=== PATIENT | female | born 1975 | race American Indian/Alaskan Native ===

== ENCOUNTER 2025-02-16 12:46 | Inpatient (IN) | payer MEDICARE, MEDICAID, SELFPAY ==
--- NOTE | ~2025-02-16 | CT_ITS ---
EXAMINATION: CT HEAD WITHOUT CONTRAST CLINICAL INFORMATION: Fall, seizure. COMPARISON: None available. TECHNIQUE: Contiguous axial imaging was performed from the skull base to vertex without intravenous administration of contrast. This CT examination was performed using dose optimization techniques as appropriate, variously including the following: *Automated exposure control *Adjustment of mA and/or kV according to patient size (this includes techniques or standardized protocols for targeted exams where dose is matched to indication/reason for exam; i.e. extremities or head) *Use of iterative reconstruction technique FINDINGS: There is no evidence of intracranial hemorrhage or extra-axial fluid collection. There is no mass effect, or edema. No CT evidence of acute territorial infarct. Ventricles, sulci, and cisterns are normal in size and configuration for patient age. No hydrocephalus. No midline shift. Negative hyperdense MCA sign. Negative insular ribbon sign. No white matter abnormalities. Normal pituitary. Globes and orbital contents image normally. No extracranial soft tissue abnormalities. The paranasal sinuses, mastoid air cells, and tympanic cavities are normally aerated. No suspicious bony abnormalities. There are no acute fractures evident. CT/CT head/brain wo IV con IMPRESSION: No acute intracranial abnormality. Electronically signed by: Vinny Kumar MD 02/16/2025 04:07 PM EDT RP
--- NOTE | ~2025-02-16 | CT_ITS ---
EXAMINATION: CT CERVICAL SPINE WITHOUT CONTRAST CLINICAL INFORMATION: Fall COMPARISON: None available. TECHNIQUE: Axial imaging was performed from the base of the skull through T2 without IV contrast. Coronal and sagittal reformatted images were generated from the original axial data set. ALARA: The examination used one or more of the following radiation dose reduction techniques: Automated exposure control, iterative reconstruction, and/or adjustment of mA and/or KV. DLP: 671 mGY*cm FINDINGS: Sclerosis and osteophytes are present at the atlantodental articulation. There is a faint somewhat amorphous calcific density inferior to anterior C1 and anterior to the dens that could represent hydroxyapatite deposition within the longus coli muscle. No fracture lines are evident. C2-C3: Unremarkable C3-C4: Mild disc space narrowing and degenerative changes with mild grade 1 retrolisthesis and facet arthropathy C4-C5: There is mild disc space narrowing and grade 1 retrolisthesis of appears chronic. There is sclerosis and osteophytes posteriorly. There is moderate facet arthropathy on the right. C5-C6: There is mild disc space narrowing and degenerative endplate changes with moderate to severe facet arthropathy on the left C6-7: There is moderate severe disc space narrowing with degenerative endplate changes and endplate osteophytes. There is mild to moderate facet arthropathy, greater on the left C7-T1: There is subtle anterolisthesis and mild disc space narrowing. There is mild facet arthropathy. There is a heterogeneous nodule in the left thyroid gland measuring 1.9 x 2.9 cm (AP by CC). CT/CT cervical spine wo IV con IMPRESSION: No acute abnormality. Multilevel degenerative disc disease and facet arthropathy Possible calcific tendinitis involves longus coli. 1.9 x 2.9 cm left thyroid gland nodule. Follow-up nonemergent thyroid ultrasound. Electronically signed by: Kendall Gonzales MD 02/16/2025 04:13 PM EDT
--- NOTE | ~2025-02-16 | FL_ITS ---
EXAMINATION: Modified Barium Swallow CLINICAL INFORMATION: Dysphagia. COMPARISON: None. TECHNIQUE: Modified barium swallow was performed under lateral fluoroscopy with patient in standing position. Barium mixed with solids and liquids of different consistencies was administered by the speech pathologist. Examination was recorded in the fluoroscopy suite. FINDINGS: Patient was given numerous consistencies. No laryngeal penetration, glottic or subglottic aspiration was observed. FLUOROSCOPY TIME: 48 seconds Number of Spot Images: N/A DOSE AREA PRODUCT: 557.9 uGy-m2 (microgray-meter squared) FL/FL Modified Barium Swallow IMPRESSION: No laryngeal penetration or subglottic aspiration was observed. Refer to the full speech therapy report to follow for further detail. Electronically signed by: Vinny Kumar MD 02/22/2025 02:47 PM EDT
[2025-02-16 13:05] VITALS: BP 118/82; BP 123/80; PULSE 109; PULSE 123; RESP 18; TEMP 36.7; O2SAT 95; O2SAT 96; BMI 26.5
[2025-02-16 13:12] VITALS: BP 123/80; PULSE 109; RESP 18; TEMP 36.7; O2SAT 96
--- OUTSIDE RECORDS SUMMARY | 2025-02-16 14:22 | XMS_ITS | Encounter Summary ---
Author Organization [email or web address] Address [address] [place] [address] Care Team Providers Care Building Construction Supervisor Name Role Phone Reji Frausto NP, Erica Primary Care Provider [phone] Encounter Details Date Type Department Care Team (Late st Contact Info) Description 02/04/2025 Lab Requisition [facility] - Main Lab [address] [place] [address] Mariposa Mendoza NP [address] [place] [address] Other pen[facility]ent[facility] (current) drug therapy Social History Tobacco Use Types Packs/Day Years Used Date Smoking Tobacco: Never Assessed Comments Unknown Sex and Gender Information Value Date Recorded Sex Assigned at Not on file Legal Sex Female 9:18 AM EST Gender Identity Not on file Sexual Orientation Not on file documented as of this encounter Plan of Treatment Not on file documented as of this encounter Procedures Procedure Name Priority Date/Time Associated Diagnosis Comments LIPID PANEL WITH REFLEX TO DIRECT LDL Routine 02/04/2025 7:00 AM EDT Other extermination supervisor (current) drug therapy HEMOGLOBIN A1C Routine 02/04/2025 7:00 AM EDT Other penit[facility] (current) drug therapy GLUCOSE, RANDOM Routine 02/04/2025 7:00 AM EDT Other penitentiary (current) drug therapy documented in this encounter Results * (ABNORMAL) Lipid panel with reflex to direct LDL (02/04/2025 7:00 AM EDT) Cholesterol 182 0 - 200 mg/dL LAB CHEMISTRY METHOD 02/04/2025 12:55 PM EDT [facility] Triglycerides 80 0 - 150 mg/dL LAB CHEMISTRY METHOD 02/04/2025 12:[address] [facility] HDL 44 >=40 mg/dL LAB CHEMISTRY METHOD 02/04/2025 12:[address] [facility] LDL Calculated 122(H) 0 - 100 mg/dL LAB CHEMISTRY METHOD 02/04/2025 12:[address] [facility] VLDL Cholesterol Francisco J 16 mg/dL LAB CHEMISTRY METHOD 02/04/2025 12:[address] [facility] Non HDL Chol. (LDL+VLDL) 138 <145 mg/dL LAB CHEMISTRY METHOD 02/04/2025 12:[address] [facility] Chol/HDL Ratio 4.1 0.0 - 4.4 LAB CHEMISTRY METHOD 02/04/2025 12:[address] [facility] Blood Venous blood specimen / Unknown Venipuncture / Unknown 02/04/2025 7:00 AM EDT 02/04/2025 12:04 PM EDT us Mariposa Frausto NP LAB BLOOD ORDERABLES Final Re sult Performing Organization Address [facility]/ZIP Co de Phone Number [facility] [address] [place] [address], * Glucose, random (02/04/2025 7:00 AM EDT) Glucose 73 70 - 100 mg/dL LAB CHEMISTRY METHOD 02/04/2025 12:[address] [facility] Blood Venous blood specimen / Unknown Venipuncture / Unknown 02/04/2025 7:00 AM EDT 02/04/2025 12:04 PM EDT us Mariposa Staple V, BICYCLE COURIER LAB BLOOD ORDERABLES Final Re sult Performing Organization Address City/[facility]/ZIP Co de Phone Number [facility] [address] [place] [address], [place] [phone] * Hemoglobin A1c (02/04/2025 7:00 AM EDT) Hemoglobin A1C 5.5 <6.5 % LAB CHEMISTRY METHOD 02/06/2025 12:[address] [facility] Mean Bld Glu Estim. 111 mg/dL LAB CHEMISTRY METHOD 02/06/2025 12:[address] [facility] Blood Venous blood specimen / Unknown Venipuncture / Unknown 02/04/2025 7:00 AM EDT 02/04/2025 12:04 PM EDT Mariposa Frausto NP LAB BLOOD ORDERABLES Final Re sult [facility] [address] [place] [address], documented in this encounter Visit Diagnoses Diagnosis Other penitent[facility] (current) drug therapy documented in this encounter Care Teams Building Construction Supervisor Relationship Specialty Start Date End Date Mariposa Mendoza NP [address] [place] [phone] PCP - General Psychiatry 02/04/25 documented as of this encounter
--- OUTSIDE RECORDS SUMMARY | 2025-02-16 14:22 | XMS_ITS | Data Portability ---
Author Organization [place] - [employer] [facility], [facility] Mate First Address [address] [place] [address] Care Team Providers Care Underground Heavy Equipment Operator Name Role Phone BETTY KAMARA Credit Card Analyst [phone] [facility] DERMATOLOGY Virtualization Engineer BRENDA ALDRICH Primary Care Provider MEMO Vargas Primary Care Provider Assessment Encounter Date Assessment Date Assessment LastModified by Organization Details LastModified Time 03/20/2021 03/20/2021 Consent given for telehealth visit [email or web address] Not available 03/20/2021 13:51:17 04/03/2021 04/03/2021 Consent given for telehealth visit Not available 04/03/2021 15:50:22 06/13/2021 06/13/2021 Consent given for telehealth visit. 30 min spent in total care of patient on day of visit including 5 minute pre-visit review of chart; 25 minutes counseling with patient re: her condition and complaints [email or web address] Not available 06/13/2021 13:15:56 03/19/2023 03/19/2023 Consent given for telehealth visit [email or web address] Not available 03/19/2023 13:55:23 Plan of Treatment Reminders Order Date Submit Date Provider Last Modified By Organization Details Last Modified Time Details Appointments None recorded. Lab None recorded. Referral gastroente rologist referral 2020 021 Not available 18:44:[address] referral 2020 021 [email or web address] Fabi Dunaway MD, [address], [place], [address], 2 12:28:35 Procedures None recorded. Surgeries None recorded. Imaging None recorded. Medication Orders nystatin 100,000 unit/mL oral suspension 2022 [address], [address] [facility], [place], [address], 3 13:55:15 nystatin 100,000 unit/mL oral suspension 2020 021 JANETH Not available 15:29:49 cromolyn 100 mg/5 mL oral concentrat e 2020 021 JANETH Not available 15:38:30 cyclobenza georgina 5 mg tablet 2020 021 [email or web address] Not available 18:29:27 trazodone 100 mg tablet 2020 021 JANETH Not available 13:50:09 topiramate 25 mg tablet 2020 021 [email or web address] Not available 12:35:11 Patient TargetsNo targets recorded. Patient InstructionsNo instructions recorded. Reason for Referral Large Animal Veterinarian Referral for Epigastric pain Referring Physician: Brenda Aldrich [facility], Encounter Date: 04/03/2021 Psychiatrist Referral for An xiety disorder Referring Physician: Brenda Aldrich [facility] Medicine, Encounter Date: 04/03/2021 Results Created Date Observation Date Name Description Value Unit Range Abnormal Flag Note LastModifiedBy Organization Detail LastModifiedTime 04/02/2003/27/2021 CT, angio gram, chest + abdom en + pelvi s, w/ contr ast No observ ation record ed. BARCODE Not Available 2020 16:06:36 04/02/20 21 03/27/2021 CT, cervi michel spine , w/ contr ast No observ ation record ed. [email or web address] Not Available 2020 09:58:23 04/02/20 21 03/27/2021 CT, thora cic spine , w/o contr ast No observ ation record ed. Not Available 2020 09:58:24 04/02/20 21 03/27/2021 CT, brain , w/o contr ast No observ ation record ed. [email or web address] Not Available 2020 09:58:24 04/02/20 21 03/27/2021 CT, lumba r spine , w/o contr ast No observ ation record ed. Not Available 2020 09:58:24 08/31/19 22 08/12/2021 XR, abdom en, 2 view No observ ation record ed. BARCODE Not Available 2021 11:30:24 09/19/19 22 09/10/2021 upper endos copy proce dure (EGD) (PROC ) No observ ation record ed. [email or web address] Not Available 2021 12:18:38 Result Notes None recorded. 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 [address], [address], [facility] [employer] 7 14:04:24 Mixed anxiety and depressiv e disorder 684121097 Active [address], [address], [facility] [employer] [facility] [employer] 7 14:06:15 Psoriasis 2554796 Active [address], [address], [facility] 7 07:10:02 Asthma 071406904 Active 2016 ANA M Jeter [address] [place] [address], [address], [facility] [employer] [facility] 7 07:10:40 Allergic rhinitis 44336227 Active 2016 ANA M Jeter [address] [place] [address], [address], [facility] 7 07:11:00 Angioedem a 40252442 Active [address], [address], [facility] [employer] [facility] 7 07:11:07 Eczema 31415407 Active 2016 ANA M Jeter [address] [place] [address], [address], [facility] 7 07:11:16 Urticaria 051806249 Active 2016 ANA M Jeter [address] [place] [address], [address], [facility] [employer] [facility] [employer] 7 07:11:24 Dysmenorr hea 868304793 Active 2016 ANA M Jeter [address] [place] [address], [address], [facility] [employer] [facility] 7 07:16:44 Rosacea 176423468 Active 2016 ANA M Jeter [address] [place] [address], [address], [facility] [employer] [facility] 7 07:19:06 Chronic hyponatre pop 32641546 Active [address], [address], [facility] [employer] [facility] 7 07:48:25 Peptic ulcer 20828201 Active 2016 ANA M Jeter [address] [place] [address], [address], [facility] [employer] 7 08:21:09 Bipolar disorder 99493232 Active 2016 ANA M Jeter [address] [place] [address], [address], [facility] - [employer] [facility] 7 08:21:42 Dry eyes 734007319 Active 2016 Deja Brian, ANA M [address] [place] [address], [address], [facility] - [facility] 7 12:07:44 Dermatogr aphic urticaria 6488062 Active 2016 ANA M Jeter [address] [place] [address], [address], [facility] - [employer] [facility] 7 12:12:08 Nausea 653366619 Active 2017 Clint johnson, [place] - [facility] 8 15:25:20 Gastroeso phageal reflux disease 125602084 Active 2017 Clint johnson, [place] - [facility] 8 15:27:50 Postconcu ssion syndrome 86832643 Active 2017 Brenda Aldrich MD [address] [place] [address], [address], [facility] [employer] [facility] 8 11:23:23 Chronic neck pain 512037615542 7 Active 2017 Brenda Aldrich MD [address] [place] [address], [address], [facility] 8 08:50:19 Loss of hair 802204065 Active 2017 Brenda Aldrich MD [address] [place] [address], [address], [facility] 8 10:08:48 Dysphagia 03151399 Active 2017 Brenda Aldrich MD [address] [place] [address], [address], [facility] 8 10:09:52 Pain of left wrist 830952695957 102 Active 2017 Brenda Aldrich MD [address] [place] [address], [address], [facility] 8 15:29:53 Recurrent falls 545265746 Active 2017 Brenda Aldrich MD [address] [place] [address], [address], [facility] [employer] 8 15:31:15 Sensitive to smells 57881969 Active 2018 Brenda Aldrich MD [address] [place] [address], [address], [facility] [employer] 9 15:06:42 Environme ntal allergy 519311909 Active 2018 Jessica Jesika [address] [place] [address], [address], [facility] [employer] 9 10:53:19 Chronic insomnia 472047575 Active 2020 Brenda Aldrich MD [address] [place] [address], [address], [facility] [employer] 1 13:48:53 Problem Notes None recorded. Procedures Surgical History Date Name Laterality Status Provider Name and Address Organization Details Recorded Time 10/28/19 19 Date of Last Pap Smear completed Jessica Canchola [address] [place] [address], [address], [facility] [employer] 11/03/2018 14:09:23 11/01/19 18 Suture/Staple removal completed ANA M Jeter [address] [place] [address], [address], [facility] [employer] 10/31/2017 15:14:19 01/10/20 17 EGD completed ANA M Jeter [address] [place] [address], [address], [facility] [employer] 05/02/2017 08:12:51 10/24/19 16 EGD completed ANA M Jeter [address] [place] [address], [address], [facility] [employer] 05/02/2017 08:13:37 09/06/19 16 EGD completed ANA M Jeter [address] [place] [address], [address], [facility] 05/02/2017 08:11:15 04/25/20 11 EGD completed Deja Brian, [address], [address], [facility] 05/02/2017 08:14:12 Septoplasty completed Deja Brian , [address], [address], [facility] 05/02/2017 07:12:30 Orthopedic Surgery completed Deja Brian, [address], [address], [facility] 05/02/2017 08:12:15 Imaging Results None recorded. Procedure Notes None recorded. Medical Equipment None Reported. Allergies Allergen ID Allergen Name Allergen Category Reaction Reaction Severity Criticality Documentation Date Start Date Code Code System Note Provider Name and Address Organization Details Recorded Time 78206 azithromy papa medicatio n Not available Not available Not available 04/10/2017 03470 Rx[facility] 13:31:55 54058 Product containin g penicilli n (product) medicatio n Not available Not available Not available 04/10/2017 93625 8001 SNOMED Clint Jean Baptiste [facility] 13:32:15 78602 ibuprofen medicatio n Not available Not available Not available 04/10/2017 5640 RxNorm Clint Jean Baptiste [facility] 7 13:32:27 67394 Cymbalta medicatio n Not available Not available Not available 04/10/2017 62709 4 RxNorm [facility] 7 13:32:57 68476 pioglitaz one medicatio n Not available Not available Not available 04/10/2017 73075 RxNorm Clintrubens Jean Baptiste [facility] 7 13:33:08 11602 prednison e medicatio n Not available Not available Not available 04/10/2017 8640 RxNorm patie nt state s that it was a fille r in the medic ation that she was aller gic to. Has had IV and was fine. Sara Cm LPN [address] [facility], [place], [address], [facility] [employer] [facility] 9 14:47:42 14755 Substance with sulfonami de structure and antibacte rial mechanism of action (substanc e) medicatio n Not available Not available Not available 05/02/2017 38088 8003 SNOMED Deja Brian, ANA M [address] [place], [address], [facility] [employer] [facility] 7 07:12:08 84004 Avelox medicatio n rash Not available Not available 07/29/2017 64574 6 RxNorm ANA M Jeter [address] [place], [address], [facility] [employer] [facility] 7 10:49:38 74228 cefadroxi l medicatio n rash severe Not available 01/20/2018 2177 RxNorm Liz Da Silva LPN [address] [facility], [place], [address], [facility] [employer] [facility] 8 17:49:24 20540 Lamictal medicatio n hives severe Not available 01/20/2018 00383 2 RxNorm Liz Da Silva LPN [address] [place], [address], [facility] [employer] [facility] 8 17:50:48 48905 Vimpat medicatio n seizure mild Not available 04/02/2018 25405 9 RxNorm Only to the 100 mg with the tremayne Canchola [address] [facility], [place], [address], [facility] [employer] [facility] 1 12:00:03 Medications Name Sig Start Date Stop Date Status Note LastModified by Organization Details LastModified Time ondansetr on hcl 4 mg tabs 09/04 completed Not Available Not Available Not Available lamotrigi ne 25 mg tabs 03/31 completed Not Available Not Available Not Available gabapenti n 400 mg caps 01/13 completed Not Available Not Available Not Available hydroxyzi ne hcl 50 mg tabs Take 1 tablet by mouth 3 times a day 02/09 completed PRN Not Available Not Available Not Available hydrocort isone 1 % crea PRN 02/21 completed Not Available Not Available Not Available clindamyc in hcl 300 mg caps Take 1 every 6 or 8 hours 09/07 completed Not Available Not Available Not Available triamcino lone acetonide 0.1 % crea 02/21 completed Not Available Not Available Not Available omeprazol e 20 mg cpdr 09/04 completed Not Available Not Available Not Available hydrocort isone 2.5 % oint 09/04 completed Not Available Not Available Not Available ondansetr on hcl 8 mg tabs Take 1 tablet by mouth 3 times a day as needed for nausea. active Not Available Not Available No t Available olanzapin e 10 mg tabs 07/13 completed Not Available Not Available Not Available cyclobenz aprine hcl 5 mg tabs 02/03 completed Not Available Not Available Not Available olanzapin e 2.5 mg tabs 07/13 completed Not Available Not Available Not Available doxepin hcl 25 mg caps 09/04 completed Not Available Not Available Not Available hydroxych loroquine sulfate 200 mg tabs Take 1 tablet by mouth every day. 02/03 completed Not Available Not Available Not Available baclofen 5 mg tabs 02/09 completed Not Available Not Available Not Available flovent hfa 44 mcg/act aero 1 puff inhalati on 2 times a day. 02/21 completed Not Available Not Available Not Available vimpat 50 mg tabs 01/07 completed Not Available Not Available Not Available advair diskus 250-50 mcg/dose aepb 02/09 completed Not Available Not Available Not Available ranitidin e hydrochlo ride 150 mg caps 02/21 completed Not Available Not Available Not Available monteluka st sodium 10 mg tabs Take 1 tablet by mouth once a day at bedtime. 03/31 completed Not Available Not Available Not Available suprep bowel prep kit 17.5-3.13 -1.6 gm/180ml soln 09/02 completed Not Available Not Available Not Available diazepam 5 mg tabs 09/04 completed Not Available Not Available Not Available clotrimaz ole 1 % crea 07/08 completed Not Available Not Available Not Available rizatript an benzoate 10 mg tabs 07/08 completed Not Available Not Available Not Available gabapenti n 300 mg caps 1 capsule by mouth 3 times a day. 01/13 completed Not Available Not Available Not Available risperido ne 1 mg tabs 01/12 completed Not Available Not Available Not Available cymbalta 30 mg cpep 09/04 completed Not Available Not Available Not Available clobetaso l propionat e 0.05 % oint 1 applicat ion topical 2 times a day as needed for rash. active Not Available Not Available No t Available minocycli ne hcl 100 mg caps 03/31 completed Not Available Not Available Not Available ranitidin e hcl 150 mg caps 1 cap QID 07/08 completed Not Available Not Available Not Available topiramat e 25 mg tabs 07/13 completed Not Available Not Available Not Available triamcino lone acetonide 0.5 % crea PRN active Not Available Not Available Not Available sucralfat e 1 gm tabs 09/04 completed Not Available Not Available Not Available prochlorp erazine maleate 5 mg tabs 07/13 completed Not Available Not Available Not Available xolair 150 mg solr 300mg twice a week active Twice every 2 weeks Not Available Not Available Not Available dexametha sone 1 mg tabs 09/04 completed Not Available Not Available Not Available trazodone hcl 150 mg tabs 09/04 completed Not Available Not Available Not Available mirtazapi ne 7.5 mg tabs 07/13 completed Not Available Not Available Not Available levocetir izine dihydroch loride 5 mg tabs 07/13 completed Not Available Not Available Not Available moxifloxa papa hcl 400 mg tabs 09/02 completed Not Available Not Available Not Available metronida zole vaginal 0.75 % gel 07/13 completed Not Available Not Available Not Available dexametha sone 2 mg tabs 03/07 completed Not Available Not Available Not Available baclofen 10 mg tabs 01/07 completed Not Available Not Available Not Available zolpidem tartrate 10 mg tabs 07/13 completed Not Available Not Available Not Available ranitidin e hcl 150 mg tabs 09/04 completed Not Available Not Available Not Available mirtazapi ne 15 mg tabs 07/13 completed Not Available Not Available Not Available cyclobenz aprine hcl 10 mg tabs 02/03 completed Not Available Not Available Not Available epinephri ne 0.3 mg/0.3ml soaj 07/01 completed Not Available Not Available Not Available xolair 150 mg/ml sosy 07/08 completed Not Available Not Available Not Available furosemid e 20 mg tabs 09/04 completed Not Available Not Available Not Available cefadroxi l 500 mg/5ml susr 02/03 completed Not Available Not Available Not Available omeprazol e 40 mg cpdr 07/13 completed Not Available Not Available Not Available ciproflox acin hcl 500 mg tabs 09/02 completed Not Available Not Available Not Available ventolin hfa 108 (90 base) mcg/actae rs PRN active Not Available Not Available Not Available oxycodone /acetamin ophen 5-325 mg tabs 09/03 completed Not Available Not Available Not Available clotrimaz ole/betam ethasone dipropion ate 1-0.05 % crea 09/04 completed Not Available Not Available Not Available neomycin/ polymyxin /hydrocor tisone 3.5-82690 -1 susp 07/08 completed Not Available Not Available Not Available doxepin hcl 10 mg caps 07/08 completed Not Available Not Available Not Available epipen 2-daniel 0.3 mg/0.3ml soaj 02/09 completed Not Available Not Available Not Available ibuprofen 800 mg tabs 03/31 completed Not Available Not Available Not Available clonazepa m 1 mg tabs PRN 02/09 completed Not Available Not Available Not Available acetamino phen/code ine 300-30 mg tabs 09/03 completed Not Available Not Available Not Available lorazepam 0.5 mg tabs 09/02 completed Not Available Not Available Not Available diazepam 2 mg tabs PRN- pt states she doesn't use that often. 02/09 completed Not Available Not Available Not Available famotidin e 20 mg tabs 07/13 completed Not Available Not Available Not Available naproxen 500 mg tabs 09/02 completed Not Available Not Available Not Available trazodone hcl 100 mg tabs Take 1 tablet by mouth once a day at bedtime as needed for insomnia . 01/13 completed Not Available Not Available Not Available doxycycli ne hyclate 100 mg caps 02/21 completed Not Available Not Available Not Available hydroxyzi ne hcl 25 mg tabs 07/13 completed Not Available Not Available Not Available vimpat 100 mg tabs 06/02 completed Not Available Not Available Not Available lorazepam 1 mg tabs 01/13 completed Not Available Not Available Not Available ipratropi um bromide 0.03 % soln 03/31 completed Not Available Not Available Not Available clonazepa m 0.5 mg tabs Take 1 tablet by mouth 2 times a day at bedtime. 03/31 completed Not Available Not Available Not Available diazepam 10 mg tabs 07/08 completed Not Available Not Available Not Available trazodone hcl 50 mg tabs 09/04 completed Not Available Not Available Not Available ondansetr on odt 8 mg tbdp 03/31 completed Not Available Not Available Not Available cromolyn sodium 100 mg/5ml conc PRN active Not Available Not Available Not Available doxycycli ne hyclate 20 mg tabs 09/04 completed Not Available Not Available Not Available zolpidem tartrate 5 mg tabs 07/13 completed Not Available Not Available Not Available paroxetin e hcl 20 mg tabs Take 1 tablet by mouth every day. 02/03 completed no longer taking/p t Not Available Not Available Not Available fluticaso ne propionat e 50 mcg/act susp 2 inhalati ons per nostril 2 times a day. active Not Available Not Available No t Available proair hfa 108 (90 base) mcg/act aers PRN 02/21 completed Not Available Not Available Not Available mupirocin 2 % oint 03/31 completed Not Available Not Available Not Available amitiza 24 mcg caps 09/04 completed Not Available Not Available Not Available azelastin e hydrochlo ride 0.1 % soln 09/04 completed Not Available Not Available Not Available buspirone 5 mg tablet Take 2 tablets twice a day by oral route. active Not Available Not Available No t Available albuterol sulfate 0.63 mg/3 mL solution for nebulizat ion Inhale 3 mL every 6 hours by inhalati on route as needed. 2018 active Not Available Not Available Not Avai lable cromolyn 100 mg/5 mL oral concentra te Take 5 mL 3 times a day by oral route. 2020 active Not Available Not Available Not Avai lable nystatin 100,000 unit/mL oral suspensio n Take 5 mL 4 times a day by oral route as directed for 7 days. active Not Available Not Available No t Available acetamino phen 325 mg tablet Take 2 tablets every 6 hours by oral route as needed. 03/19 completed Not Available Not Available Not Available doxycycli ne hyclate 100 mg capsule Take 1 capsule twice a day by oral route for 7 days. 02/21 completed Not Available Not Available Not Available clindamyc in HCl 300 mg capsule Take 1 capsule 3 times a day by oral route for 10 days. 02/03 completed Not Available Not Available Not Available diphenhyd ramine 50 mg capsule Take 1 capsule every 6 hours by oral route as needed. 02/03 completed Not Available Not Available Not Available trazodone 50 mg tablet Take 1 tablet every day by oral route. 03/07 completed Not Available Not Available Not Available fluconazo le 150 mg tablet TAKE ONE TABLET ON DAY ONE AND SECOND TABLET THREE DAYS AFTER TABLET ONE active Not Available Not Available No t Available senna 8.6 mg tablet Take 2 tablets every day by oral route. 2020 active Not Available Not Available Not Avai lable prochlorp erazine maleate 5 mg tablet 07/13 completed Not Available Not Available Not Available ondansetr on HCl 8 mg tablet Take 1 tablet(s ) every 8 hours by oral route as needed. 03/31 completed Not Available Not Available Not Available Avelox 400 mg tablet Take 1 tablet every day by oral route for 7 days. 09/02 completed Not Available Not Available Not Available rizatript an 10 mg tablet PRN 07/13 completed Not Available Not Available Not Available clonazepa m 1 mg tablet 02/09 completed Not Available Not Available Not Available cromolyn 20 mg/2 mL solution for nebulizat ion INHALE 2 MILLILIT ERS (20 MG) BY NEBULIZA TION ROUTE 4 TIMES PER DAY PRN 03/31 completed Not Available Not Available Not Available bacitraci n 500 unit/gram topical ointment Apply 2 applicat ions twice a day by topical route as directed . 02/03 completed Not Available Not Available Not Available olanzapin e 10 mg tablet 07/13 completed Not Available Not Available Not Available topiramat e 25 mg tablet TAKE 2 TABLETS BY MOUTH TWICE DAILY DIRECTED active Not Available Not Available No t Available hydroxyzi ne HCl 50 mg tablet 07/08 completed Not Available Not Available Not Available doxepin 10 mg capsule 07/13 completed Not Available Not Available Not Available omeprazol e 40 mg capsule,d elayed release TAKE ONE CAPSULE BY MOUTH EVERY DAY active Not Available Not Available No t Available triamcino lone acetonide 0.1 % topical cream 02/21 completed Not Available Not Available Not Available risperido ne 2 mg tablet 01/12 completed Not Available Not Available Not Available Metrogel Vaginal 0.75 % (37.5 mg/5 gram) Insert 1 applicat orful every day by vaginal route at bedtime for 5 days. 11/03 completed Not Available Not Available Not Available lorazepam 0.5 mg tablet active Not Available Not Available Not Available Klonopin 0.5 mg tablet 2 tabs bid. 03/31 completed [facility]. Not Available Not Available Not Available trazodone 100 mg tablet TAKE 1 TABLET BY MOUTH AT BEDTIME NEEDED active Not Available Not Available No t Available diazepam 2 mg tablet 07/08 completed Not Available Not Available Not Available baclofen 10 mg tablet TAKE 1/2 TABLET BY MOUTH THREE TIMES DAILY 03/07 completed Not Available Not Available Not Available hydrocort isone 1 % topical cream 02/21 completed Not Available Not Available Not Available dexametha sone 2 mg tablet PRN active Not Available Not Available Not Available mirtazapi ne 30 mg tablet TAKE 1 TABLET BY MOUTH AT BEDTIME active Not Available Not Available No t Available Advair Diskus 250 mcg-50 mcg/dose powder for inhalatio n PRN active Not Available Not Available Not Available docusate sodium 100 mg capsule Take 1 capsule twice a day by oral route. active Not Available Not Available No t Available hydroxyzi ne HCl 25 mg tablet one tid for itching as needed 02/03 completed Not Available Not Available Not Available ranitidin e 150 mg capsule Once daily 03/07 completed Not Available Not Available Not Available zolpidem 5 mg tablet TAKE 1 TABLET BY MOUTH AT BEDTIME NEEDED 2021 active Not Available Not Available Not Avai lable albuterol 90 mcg/actua tion aerosol inhaler Inhale 2 puffs every 4 hours by inhalati on route as needed. active Not Available Not Available No t Available diazepam 10 mg tablet TAKE 2 TABLETS BY MOUTH EVERY EVENING NEEDED active Not Available Not Available No t Available hydrocort isone 0.5 % topical ointment APPLY A THIN LAYER TO THE AFFECTED AREA(S) BY TOPICAL ROUTE 2 TIMES PER DAY 02/03 completed Not Available Not Available Not Available zolpidem 10 mg tablet Once daily- prn 02/09 completed Not Available Not Available Not Available doxycycli ne hyclate 20 mg tablet Take 1 tablet twice a day by oral route. 01/13 completed no longer taking/p t Not Available Not Available Not Available fluticaso ne propionat e 50 mcg/actua tion nasal spray,celia penon 02/21 completed Not Available Not Available Not Available clotrimaz ole 1 % topical cream APPLY TO THE AFFECTED AND SURROUND ING AREAS OF SKIN BY TOPICAL ROUTE 2 TIMES PER DAY IN THE MORNING AND EVENING x 10 days 2018 active Not Available Not Available Not Avai lable risperido ne 1 mg tablet Once daily 01/12 completed Not Available Not Available Not Available doxycycli ne hyclate 100 mg tablet Take 1 tablet twice a day by oral route for 10 days. 09/01 completed Not Available Not Available Not Available diazepam 5 mg tablet TAKE 1 TABLET BY MOUTH AT BEDTIME FOR 7 DAYS NEEDED active Not Available Not Available No t Available olanzapin e 5 mg disintegr ating tablet 02/09 completed Not Available Not Available Not Available neomycin- polymyxin -hydrocor t 3.5 mg-10,000 unit/mL-1 % ear drops,celia p INSTILL 4 DROPS INTO AFFECTED EAR(S) BY OTIC ROUTE 3 TIMES PER DAY 09/01 completed Not Available Not Available Not Available escitalop yayo 10 mg tablet 02/09 completed Not Available Not Available Not Available cyclobenz aprine 5 mg tablet TAKE 1 TABLET BY MOUTH TWICE DAILY active Not Available Not Available No t Available clonazepa m 0.5 mg disintegr ating tablet Place 1 tablet twice a day by translin gual route. 02/21 completed Not Available Not Available Not Available neomycin- bacitraci n-polymyx in 3.5 mg-400 unit-5,00 0 unit/g top packet 1 Applicat ion topical 3 times a day as needed for allergy as needed. active Not Available Not Available No t Available mirtazapi ne 7.5 mg tablet 02/09 completed Not Available Not Available Not Available EpiPen 09/04 completed Not Available Not Available Not Available Acetamino phen-Code ine #3 Take 2 tablets by mouth every 4 hours as needed for pain. 10/24 completed no longer taking/p t Not Available Not Available Not Available Acidophil us 03/19 completed Not Available Not Available Not Available sodium chloride 1,000 mg soluble tablet Take 2 tablets by mouth every day. 02/03 completed Not Available Not Available Not Available ProAir HFA 90 mcg/actua tion aerosol inhaler active Not Available Not Available Not Available levocetir izine 5 mg tablet PRN 02/21 completed Not Available Not Available Not Available Vimpat 50 mg tablet Take 1 tablet 4 times a day by oral route. 07/13 completed Not Available Not Available Not Available Edna Allergy tid per dermatol ogist 03/31 completed Not Available Not Available Not Available EpiPen 2-Daniel 0.3 mg/0.3 mL injection , auto-inje ctor INJECT 1 PEN IN THE MUSCLE ONE TIME DIRECTED active Not Available Not Available No t Available ProAir RespiClic k 2 puffs every 4 hours prn. 07/01 completed Not Available Not Available Not Available cholecalc iferol (vit D3) 1,000 unit-joseph min K2 (MK4) 100 mcg tablet Take 2 tablets every day by oral route. active Not Available Not Available No t Available baclofen 5 mg tablet 1 tablet 3 times a day as needed for pain active Not Available Not Available No t Available Xolair 150 mg/mL subcutane ous syringe 07/13 completed Not Available Not Available Not Available Vitals Date Recorded Body weight Provider Name an d Address Organization Details Last Updated DateTime 04/03/2021 47116.93 g Jessica Canchola [address] [facility], [place], [address], [place] - [employer] 04/03/2021 14:31:56 Social History Question Answer Notes LastModified by Organizat ion Details LastModified Time Tobacco Smoking Status Never Smoker Clint johnson, [place] - [employer] 04/10/2017 13:44:37 What Is Your Level Of Caffeine Consumption? Occasional Information not available 04/10/2017 How Much Tobacco Do You Chew? None Information not available 04/10/2017 Which Illicit Or Recreational Drugs Have You Used? No Information not available 04/10/2017 Are There Any Guns Present In Your Home? No Information not available 04/10/2017 Hard Of Hearing Or Deaf In One Or Both Ears? No Information not available 04/10/2017 Legally Blind In One Or Both Eyes? No Information no t available 04/10/2017 Foreign Travel Yes Informatio n not available 04/10/2017 Do You Have A Family History Of Mental Health Or Substance Abuse? No Information not available 04/10/2017 Language Jamaican Information no t available 09/17/2017 Country Of Origin [facility] Informa tion not available 09/17/2017 Marital Status Single Informatio n not available 04/10/2017 What Was The Date Of Your Most Recent Tobacco Screening? 01/12/2021 Information not available 01/12/2021 How Many Children Do You Have? 0 Information not available 09/17/2017 Obese No Information no t available 09/17/2017 Overweight No Information no t available 09/17/2017 Seat Belts Used Routinely Yes Information not available 04/10/2017 Are You Sexually Active? No Information not available 04/10/2017 Smoke Alarm In Home Yes Information not available 04/10/2017 Are You Passively Exposed To Smoke? No Information no t available 09/17/2017 General Stress Level High Information not available 04/10/2017 Do You Use Sunscreen Routinely? Yes Information not available 04/10/2017 Sex: Unknown Functional Status Question Answer Note LastModified by Organizat ion Details LastModified Time What is your level of alcohol consumption? 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 None Information not available 04/10/2017 Mental Status None recorded. Family History Relationship Description Onset Age of this Age Resolved Age Notes LastModified by Organization Details LastModified Time Father Parkinson's disease courtney ia kkorte Not available 05/02/2017 08:18:51 Notes:updated 09/17/17 SR Medical History Condition Response Asthma, COPD, Breathing or Lung Disorder Y Anxiety/Depression Y Gout N Cardiac History, Heart Murmur, CO N Eye or Vision Problems N Gynecologic problems N Hernia N Thyroid Problems Y GI Problems Y Developmental or Behavioral Disorders N Blood Pressure High or Low N Skin Problems Y Breast Problem N Food or Environmental Allergies N Diabetes N Bladder,Kidney Problems or Recurrent UTI 's Y Muscle, Joint, or Bone Problems Y Bleeding Disorder N Arthritis N Cancer (of any kind) N Defects or Inherited Diseases N Prostate issues, ED or Sexual Problem N Insomnia N Cholesterol High or Low N Chronic Pain N Stroke N Headache N Dizziness or Fainting N Seizures or Convulsions N Ear Nose & Throat (ENT) Problems N Neuropathy N Osteoporosis N Liver Disease or Hepatitis N Gynecological History Statement/Question Response Hx abnormal paps neg incontinence urine/ bowels N Y hx of breast problem neg Date of LMP 08/17/2018 genital prolapse N Hx any STI neg Date of Last Pap Smear 10/27/2018 Current Control Method None Age at Menarche 11 hx of urinary problem no hx of butter printer surgery no Obstetrics History GPAL:G 0 P 0 0 0 0 Immunizations Vaccine Type Date Status Note Provider Nam e and Address Organization Details Recorded Time COVID-19 vaccine, vector-nr, rS-ChAdOx1, PF, 0.5 mL 01/11/2021 completed Carlita johnson [place] - [facility] 01/12/2021 13:53:52 Past Encounters Encounter ID Performer Location Encounter Start Date Encounter Closed Date Diagnosis/Indication Diagnosis SNOMED-CT Code Diagnosis ICD10 Code Diagnosis Note [id number] Eva Sommers MD [facility] [address] [place] [address] 04/10/2017 13:18:15 04/10/2017 14:21:53 Mixed anxiety and depressive disorder 271800376 F41.8 She is off her anxiety meds. Needs to get back on those meds.I need to obtain the records and will also expedite social sciences professor/psy chiatry consult.Se ems like a lot of her symptoms are related to anxiety and she says she feels like that is part of the problem. Talked about some other measures that can help deal her deal with anxiety and including meditation . Her mother has been helpful to help her relax. Urticaria 014393439 L50. 9 She has been to the ED several times in the last week. She has missed her most recent dose of Xolair. She has a decadron dose pack.She needs an humanities division chair and a dermatolog ist.She will complete the decadron. Stay on hydroxyzin e and will continue with ranitidine .explained that the symptoms were not resolved immediatel y and she needs to just give the medication some time. Abdominal pain 50633543 R10.9 she has an apt with Dr. Austin tomorrow. [id number] Eva Sommers MD [facility] [address] [place] [address] 07/25/2017 07:58:32 07/25/2017 08:38:56 Acute maxillary sinusitis 59274966 J01.00 We discussed the risks of treating her with an antibiotic given her history of antibiotic allergy and mast cell disorder. She understand s and is aware of the risk. With reluctance we will treat with Avelox. She will follow up with her humanities division chair on Friday to inform them that she is taking this antibiotic . Mixed anxi ety and depressive disorder 906949639 F41.8 She is doing well seeing Krystyna Moreno and will continue with her. Allergic rhinitis 532582 04 J30.9 History of deviated septum and sinus infections . She would like to see a specialist . Will refer to ENT Eczema 95770856 L30.9 She has multiple skin issues. Will refer to dermatolog y. [id number] Eva Sommers MD [facility] [address] [place] [address] [place] [address] 09/02/2017 11:00:13 09/02/2017 11:58:02 Hyponatremia 16955261 E87.1 Chronic hyponatremia 503 13781 E87.1 She reports she has been hyponatrem ic for over 20 years. Na+ was 125 last week and could be contributi ng to unsteady feeling.Co ncern re cause. She report that no one has been able to find cause.To ED today - ? fluids. Spoke with ED nurse. [id number] Eva Sommers MD [address] [place] [address] 10/24/2017 07:31:33 10/24/2017 09:06:57 Vasovagal syncope 402335417 R55 likely vasovagal syncope. Ambulance called and she was transporte d to the hospital. Chronic hyponatremia 503 16655 E87.1 SHe is worried about her sodium level and would like it checked. [id number] Eva Sommers MD [address] [address] 10/31/2017 14:31:55 11/06/2017 15:36:20 Facial laceration 148457270 S01.81XD laceration is well-heale d. I asked her to use a small amount of bacitracin or lotion to keep the area moist for the next couple of days. Near syncope 468143617 R 55 she already has an appointmen t set up with Dr. Russo for November 12. We will complete PT 1 form so that she can get there.[place] has had issues with presyncope /syncope for years. I explained that we may not get to the bottom of some of her issues. Mixed anxi ety and depressive disorder 809058800 F41.8 she has an appointmen t with Krystyna Moreno next week. [id number] Brenda Aldrich MD [facility] [address] [facility] [place] [address] 01/13/2018 10:45:53 01/13/2018 11:23:35 Laceration of wrist 625681363 S61.512A There is mild erythema without pus around lesion. Trial topical abx as she would like to avoid systemic meds. If worsening redness, pain or d/c, RTC for oral abx. Nausea 404503219 R11.0 Pt requesting RF zofran. I called pharmacy to increase dispense to #30 Chronic hyponatremia 503 43661 E87.1 Per ED report, sodium increase from 123 to 130 with dietary measures (high salt). Con't. F/u kidney specialist s. 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 She is additional ly being worked up for neurodegen erative disorder. Cont with imaging ordered by Dr Cage and new medication . [id number] Kyler Turner MD [facility] [address] [place] [address] 02/03/2018 13:45:01 02/03/2018 14:56:47 Dysmenorrhea 478289912 N94.6 Irregular intermenstrual bleeding 26783739 N92.1 Premenstru al dysphoric disorder 625119 F32.81 Cyst of left ovary 58595 29626 0825163 N83.202 Endometrio sis of uterus 46074370 N80.0 Endometrio sis of pelvis 38440563 N80.3 Screening for malignant neoplasm of cervix 092126066 Z12.4 Venereal d isease screening 374622174 Z11.3 Vaginal discharge 129515 006 N89.8 [id number] Brenda Aldrich MD [facility] [address] [facility] [place] [address] 02/17/2018 09:44:22 02/17/2018 11:25:49 Dysphagia 47991534 R13.10 PE appears benign. Will order swallow study to rule out stricture. If neg, consider GI referral. Loss of hair 328130274 L 65.9 Frontal pattern. BW, and endo referral per pt request. Chronic hyponatremia 503 74275 E87.1 Update BW today I do not feel SSRIs would be a safe med choice for dysmenorrh ea given this issues. Request she see butter printer to review options. Amirah carias f/u kidney specialist s. Chronic neck pain 983210 2402 107 M54.2 Pain clinic appt in March. Will check tick panel given hx exposure [id number] Kyler Turner MD [facility] [address] [place] [address] 03/31/2018 09:52:25 03/31/2018 10:57:22 Menorrhagia 225323614 N92.0 Irregular intermenstrual bleeding 37210779 N92.1 Pain in pelvis 81467280 R10.2 Nausea and vomiting 1693 2000 R11.2 [id number] Colby Kimble MD [facility] [address] [place] [address] 04/02/2018 09:27:26 04/02/2018 11:42:46 Postconcussion syndrome 00921717 F07.81 last neurology consult reviewed, no record of any seizures. I've personally placed a call to Dr. Russo 's office and LMOM to please send consult and call back to coordinate care, also to call patient to clarify need for rx and update prescripti on as required. Not driving, which is significan t in ensuring safety. Bipolar disorder 5844840 4 F31.9 she is reportedly under the chronic care of Mira Moreno. [id number] Brenda Aldrich MD [facility] [address] [place] [address] 05/12/2018 14:14:19 05/12/2018 15:13:34 Chronic hyponatremia 58010837 E87.1 Update BW today Postconcus janessa syndrome 24929364 F07.81 with cognitive and other neurologic sequelae. Though pt reports now on Vimpat, I do not have seizure on problem list, and visit from 11/19 does not report seizure as active dx. Last I spoke with Dr Cage pt was being worked up for neurodegen erative disorder. I called office to request updated OV and to have them call Shayla about any upcoming studies (EEG, EMG) as she has not heard back but thought something had been ordered. Chronic neck pain 382841 6691 107 M54[address] Monaco on Friday as planned. [id number] Brenda Aldrich MD [facility] [address] [facility] [place] [address] 06/02/2018 12:49:51 06/02/2018 14:40:02 Chronic hyponatremia 23861387 E87.1 Last sodium level somewhat improved. Rec maintain moderate sodium intake and adequate hydration. 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 Ok to stop cromolyn for now. Con't as needed hydroxyzin e. Postconcus janessa syndrome 80865457 F07.81 with cognitive and other neurologic sequelae. I have called office to request updated OV and studies (EEG, EMG) however no recent reports are on file. Hopefully these will be forthcomin g. Con't Vimpat and f/u neurology. Near syncope 018282715 R 55 Cardiology appt this Friday. Their input will be appreciate d. ? POTS or other autonomic dysfunctio n. Avoid excessive stress, maintain adequate hydration and nutrition. F/u here 8 weeks. [id number] Brenda Aldrich MD [facility] [address] [facility] [place] [address] 06/19/2018 14:42:51 06/19/2018 16:16:39 Chronic hyponatremia 76775918 E87.1 Last sodium level somewhat improved. Rec maintain moderate sodium intake and adequate hydration. Await studies through [facility]. Postconcus janessa syndrome 06634844 F07.81 with cognitive and other neurologic sequelae.? seizure disorder, followed by Dr Cage. Symptomati c today (dizziness , not feeling well) without observed seizure. Con't Vimpat and f/u neurology. Pain of left wrist 15616 28832 39813 M25.532 + tenderness on exam c/w median nerve inflammati on. I feel that compressio n with MAURICE could be just as helpful as an immobilizi ng brace. Provided samples for pt. Ok to defer surgery if she is not comfortabl e with this treatment. Also helpful to wait for CV workup. Recurrent falls 73879109 2 R29.6 seizure vs syncope vs deconditio mary vs others. Heart monitor workup in place. Await Dr Da Silva's recommenda tions. [id number] Colby Kimble MD [facility] [address] [place] [address] 07/01/2018 14:39:47 07/01/2018 15:23:02 Pain of left wrist 1195629458 74074 M25.532 x-ray to r/o fx of carpal bones. Certainly she does not seem to have a fracture of larger bones of forearm nor of hand/finge rs. Assuming negative would advise activity as tolerated. [id number] Brenda Aldrich MD [facility] [address] [place] [address] 07/24/2018 14:44:38 07/24/2018 16:03:03 Otitis externa 9558041 H60.91 Mild, may be inflammati on more than infection but will prescribe combinatio n drops to be safe. x 1 week. Pain of left wrist 31383 21779 79406 M25.532 Rec she speak with Dr Chatterjee about hand therapy or PT to help reduce symptoms. Recurrent falls 49407989 2 R29.6 No cardiac cause determined . Probably multifacto rial. My hope is she will be able to meet with neurology for treatment plan in the next month or two. Con't Vimpat at current dose. [id number] Colby Kimble MD [facility] [address] [place] [address] 08/19/2018 10:12:50 08/19/2018 12:06:41 Acute maxillary sinusitis 39824777 J01.00 Symptoms began 2 weeks ago with primarily teeth pain and after a trial of antibiotic from dentist, acutely worsened 2 days ago with constituti onal symptoms and non-produc tive cough as well as pain in maxillary and ears, L side> R. On exam, pt was tender to palpation in maxillary sinus and mandibular monaco with tender lymphadeno duran. Moderate erythema bilaterall y in eyes and throat. Given the duration of symptoms (greater than 10 days), physical exam, and patient's hx of chronic sinusitis, likely diagnosis is acute bacterial sinusitis. Other diagnoses to consider are allergic rhinitis, retrophary ngeal abscess, and viral URI. Less likely allergic rhinitis due to acute pain in maxillary sinuses and jaw. Retopharyn geal abscess less likely due to lack of severe throat pain, breathing difficulty , and drooling. Less likely viral URI due to location of pain and duration of symptoms. Plan:- doxycyclin e 100mg for 10 days due to patient's allergies- ENT consult (already pending) [id number] Brenda Aldrich MD [facility] [address] [facility] [place] [address] 09/01/2018 12:57:23 09/01/2018 13:41:47 Postconcussion syndrome 78724152 F07.81 + frequent falls, dizziness with cognitive and other neurologic sequelae.? seizure disorder, followed by Dr Cage but I have not received notes in months, and pt is worsening. Symptomati c today without observed seizure. I would like Shayla to transfer care to [facility] neurology for more comprehens luzma care and testing. Chronic neck pain 905184 1155 107 M54.2 Worse post fall but full ROM. Follow up with Dr Monaco as planned. 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 ? other congenital issues that might explain Shayla's constellat ion of symptoms which include but are not limited to hyponatrem ia, thrombocyt osis, vertigo, poor circulatio n. Chronic hyponatremia 503 82820 E87.1 Unclear dx. Recheck levels today. [id number] Colby Kimble MD [facility] [address] [facility] [place] [address] 09/02/2018 13:42:37 09/02/2018 15:11:51 Vulvovaginitis 39250082 N76.0 empiric dx. trial topical antifungal , to arrange for f/u with optometry teacher for full butter printer exam. The patient verbalized a good understand ing of and agreement with plan. Dry eyes 754587342 H04.1 29 discussed use of artificial tears prn [id number] SUSI MAHONEY CNM [facility] [address] [facility] [place] [address] 09/07/2018 14:39:31 09/07/2018 15:25:35 Pruritus of vagina 73734574 L29.3 Pruritus ani 24721495 L2 9.3 Pruritus of vulva 960207 00 L29.2 [id number] Brenda Aldrich MD [facility] [address] [place] [address] 10/16/2018 15:22:58 10/16/2018 16:16:03 Sensitive to smells 64410040 R43.8 We discussed this diagnosis at length and ways for Shayla to learn to tolerate sensations and manage the accompanyi ng anxiety and panic. I recommend against further avoidance, as she seems to be in a vicious cycle of avoidance and increased sensitivit y. I sent her links to several websites discussing this condition and possible approach. Rec she try adding red pepper flakes to bland foods in order to work on the aspect of smell that arises from the soft palate, with the hope that the hot spice might dull other sensations and make them less noticeable /noxious. She is aware this is experiment al. She will d/c benadryl and flonase as she finds them irritating , and will decrease her dose of cromolyn. Pain of left wrist 50438 42941 99380 M25.532 Not a surgical candidate. Continues, bothersome . Will con't f/u Dr Monaco at pain clinc. Mixed anxi ety and depressive disorder 448608322 F41.8 Shayla is very distressed today. The majority of our visit was spent trying to focus on one issue at a time and avoid projecting too far into the future, to help reduce her feeling of panic and overwhelm. I recommend frequent f/u, such as q 6 weeks, to help Shayla build coping skills and avoid catastroph izing. F/u 4-6 weeks. [id number] Brenda Aldrich MD [facility] [address] [place] [address] 11/03/2018 13:53:01 11/03/2018 15:14:51 Mast cell disorder 275341767 D89.40 Request she return next visit with clear list of what meds she takes daily, as needed or never, to simplify med regimen and make sure our records are accurate. Will look into possible specialist . Chronic hyponatremia 503 76760 E87.1 Last levels wnl. Will recheck next visit. Anxiety disorder 2637307 06 F41.9 Depressed and hopeless as well, but is resistant to this as a primary symptom; feels in response to physical ailments. Declining evaluation or treatment at this time. Sensitive to smells 4584 6002 R43.8 Again discussed this diagnosis at length and ways for Shayla to learn to tolerate sensations and manage the accompanyi ng anxiety and panic. Rec she increase red pepper flakes, with the hope that the hot spice might dull other sensations and make them less noticeable /noxious. Explained that like many people who suffer from chronic conditions , she can try to separate the sensation itself from the reaction, which often results in worsening mood, frustratio n and hopelessne ss. Will update forms to include provision that she ride alone when possible to avoid triggers. Edema 259289663 R60.9 Not actually present objectivel y. Irregular intermenstrual bleeding 80608941 N92.1 Fibroids on u/s. Also ? perimenopa use. Consider repeating hormone testing 03/22 (one year from prior). [id number] Eva Sommers MD [facility] [address] [place] [address] 01/07/2019 09:25:26 01/07/2019 10:49:37 Abrasion of skin of ankle [id number] S90.511A (acute) 43 yo F with 3 superficia l abrasions on R that she states must have occurred during ambulance transport- had overdose & seizure activity for which she was admitted to [facility] 12/30-01/02. No indication of secondary infection at this time. Given eschar that is present, I recommende d gently debriding after shower/bat h or use of a warm compress to encourage healthy tissue to form. She states she is unable to use ant topical abx ointment r/t mast cell disorder. I asked that she double check with her humanities division chair about this & if able, to apply it to the area to keep it moist. Skin lesion [id number] L98 .9 (acute) Reassuranc e provided that black dot under L breast is a clogged pore & not a tick. [id number] Cindy Diggs MD [facility] [address] [place] [address] 07/13/2019 13:06:34 07/13/2019 13:46:10 Acute sinusitis [id number] J01.90 4 wk h/o sinusitis. Appropriat e to treat for bacterial etiology given length of symptoms. Will treat with doxycyclin e given patient allergies. Otherwise encouraged to continue supportive care with good oral fluid intake, rest, ibuprofen or acetaminop hen as needed for fever or pain. Follow up if symptoms worsen or fail to improve. Dizziness [id number] R42 Lightheade dness likely due to sinusitis, associated mild dehydratio n, checking labs to rule out systemic infection, true dehydratio n or electrolyt e abnormalit ies. Advised to increase fluid intake and monitor symptoms with treatment of sinusitis as above. [id number] Brenda Aldrich MD [facility] [address] [place] [address] 01/12/2021 13:51:41 01/12/2021 15:07:16 Loss of taste 38403675 R43.2 Shayla has complained about this, as well as aversion to eating, since I have known her. Unclear etiology. Reasonable to rule out COVID though unlikely given normal XR, BW, and single J&J vaccine. Suspected coronavirus infection [id number] Z03.818 r/o COVID-19 as requested by pt, she is aware to come to [facility] for test Anxiety 68280161 F41.9 Severe, worsening. I expressed that olanzapine likely has the best efficacy to side effect ratio, Shayla states she is concerned about s/e and would prefer a med she has been on in the past. Due to concerns re: over-sedat ion, rec 1/2 prior dose twice daily or 0.5 mg ODT. Will f/u in 2-3 weeks to see if this has been effective and to discuss adding additional medication to decrease anxiety and intrusive thoughts. Chronic insomnia 6270085 04 F51.04 Pt states she can't sleep, but is also afraid of not waking up. I would recommend restarting trazodone at night, a medication she has also taken in the past without a/e. Counseled re: risks of sedation, rec 1/2 prior dose, may increase to 100 mg if needed to aid sleep. Administra tion of diphtheria, pertussis, and tetanus vaccine [id number] Z23 Given the many somatic complaints , I would like to wait at least 3 weeks after administra tion of J&J COVID vax before administer ing another vaccine for Shayla radha as I do not think she is at major risk of tetanus exposure. This was explained to pt at length. [id number] Brenda Aldrich MD [facility] [address] [place] [address] 02/16/2021 14:34:21 02/16/2021 16:13:47 Visual impairment 423873271 H54.7 States not address at ED. I explained why this is not generally done at an emergency facility. As I could not evaluate due to phone visit, offered referral to eye MD, which she has agreed to. Chronic insomnia 3807520 04 F51.04 States that the 4 tablets, prescribed by Dr Palacios, has been somewhat helpful. Requesting separate script for this, which was provided and sent to [facility] as she does not feel she can work with [facility] pharmacist any longer. Note that QID not covered by insurance. Changing to 10 mg 2 tabs at single dose to see if this clarifies regimen and allows for coverage. Schedule confirmed by fax from [facility] which reported Dr Palacios's initial dosing regimen (5 mg TID then 20 mg qhs (four 5 mg tablets in single dose) Anxiety disorder 5604853 06 F41.9 Agrees to manage with diazepam TID during the day, which was establishe d during her most recent [place] admission. I have sent this to [facility], where pt now agrees to get her medication s. Due to numerous issues with insurance, pharmacy listed in computer, and confusion over the sig, I have needed to resend these prescripti ons multiple times. Followed up with phone call to pharmacist clarifying that the 5mg is to be used as needed during the day, while the 20 mg onetime dose is at night for sleep. Hopefully this sig will be covered by pt as she states she cannot afford to pay it out of pocket. Chronic constipation [id number] K59.09 Refusing miralax, MOM and Enulose. Refusing glycerin suppositor ies. I am concerned constipati on plays a role in urinary sxs and have explained need for tx. Will try 2 senna qhs. F/u Wed. [id number] Brenda Aldrich MD [facility] [address] [place] [address] 02/21/2021 11:58:11 02/21/2021 13:07:06 Chronic insomnia 109603709 F51.04 I spent 15 minutes on the phone with the [facility] pharmacy picking technician, Milagros. She knows Shayla from many years back & states she is comfortabl e providing medication s for this pt. She is requesting new scripts for the meds Shayla is taking for her anxiety and insomnia, which are trazodone 100 mg qhs, diazepam 20 mg qhs for sleep and diazepam 5 mg TID for anxiety as needed. Note that the 2 different doses for diazepam are to allow for better insurance coverage. Will provide 2 weeks of the diazepam for patient safety reasons. I have provided my cell phone to Milagros if she needs to reach me. I have advised that a single pharmacist , ideally her, should be the one to speak with pt and myself in order to minimize confusion and conflict. She expressed agreement. Shayla is aware of 2 week dispense. We will meet by phone in 2 weeks to see if we can extend to 4 weeks at a time. Anxiety disorder [id number] 06 F41.9 Agrees to manage with diazepam TID during the day, which was establishe d during her most recent [facility] admission. Followed up with phone call to pharmacist clarifying that the 5mg is to be used as needed during the day, while the 20 mg onetime dose is at night for sleep. Hopefully this sig will be covered by pt as she states she cannot afford to pay it out of pocket. Allergic reaction 589004 005 T78.40XA Requesting brand name med [id number] Brenda Aldrich MD [facility] [address] [place] [address] 03/07/2021 10:58:47 03/07/2021 12:20:39 Migraine 94669896 G43.909 Topamax prescribed previously . She has been off for more than 4 weeks. I suggest a retrial to see if it can help manage not only migraine but aspects of her other poorly characteri zed pain syndromes as well. She is agreeable to this. One tab qam to start, then add evening dose after 1 week if tolerating . Environmental allergy 42 [id number] T78.49XA Shayla continues to report burning sensation, poor taste and smell of uncertain etiology. I feel the hydroxyzin e might help alleviate some of the more toxic sensations , including burning. Though steroids at low dose have been helpful in past per pt, I do not want to contribute to swelling. Strongly rec frequent meetings and adding only one med at a time to reduce risks of adverse s/e and polypharma cy. F/u 2 weeks. Edema of l ower extremity 127959098 R60.0 I've explained that I cannot treat edema without in person exam-- need to obtain BP, characteri ze pitting vs non-pittin g and document weights. She remains unwilling to come in in person. I reiterate need, and also ED if any acute/jaswinder re worsening. [id number] Brenda Aldrich MD [facility] [address] [place] [address] 03/20/2021 13:17:49 03/20/2021 15:48:08 Chronic insomnia 208191076 F51.04 Continues to be a problem per pt. Restart trazodone 100 mg. I am not sure why this was not listed on her med list, as I have prescribed in the past. Pt was on 200 mg previously but I have explained that when restarting it is safer to begin at lower doses. She was on 100 mg in the hospital so this is what I have chosen to restart. Low back pain 195036652 M54.5 Low dose cyclobenza georgina will be added in hopes of reducing back and neck pain. F/u phone visit 2-3 weeks. Retention of urine 77013 4002 R33.9 Pt cont to complain of difficulty voiding. This has been investigat ed while at [facility]. No clear cause. I've explained to Shayla that I cannot evaluate during a phone visit. She continues to refuse in person care. Aware that she can schedule an in person visit at any time and that this is my preference in order to fully investigat e her many somatic complaints . [id number] Brenda Aldrich MD [facility] [address] [place] [address] 04/03/2021 14:28:58 04/03/2021 17:20:59 Candidiasis of mouth 07753768 B37.0 Mom describes white lesions on her tongue and OP. Pt describes burning when she swallows. Tx'd with swish and swallow with some reported success in hosp in [place] area, will retry empiric tx. Epigastric pain 72250518 R10.13 Abdominal pain and constipati on, requesting referral to GI, which was placed. Atopic dermatitis 610548 01 L20.9 Pt and mom describe pink patches on pt's LE. Rec she restart cromolyn solution. Anxiety disorder F41.9 Pt very anxious today, expressing hopelessne ss, wishing I had never left the [facility] 2 years ago. I urged her to call 911 and present to crisis if she is feeling desperate or has desire for self harm. I will request input from Dr Dunaway to work on medical regimen to manage the significan t psychiatri c conditions that interplay with her distressin g physical complaints /sxs. Phone f/u 2 weeks. Somatoform disorder 8211 2144 F45.9 Shayla has limited insight regarding and resistance to somatoform disorder as contributo r to distress from physical symptoms. Outpt psych referral placed, above. [id number] Brenda Aldrich MD [facility] [address] [place] [address] 06/13/2021 10:58:47 06/13/2021 14:01:43 Loss of sense of smell 89977235 R43.0 States hard to breathe in or out. Very hard to evaluate as patient refuses to come in for visit, states I don't feel safe and is not willing to come in. Unable to articulate what could improve her feeling of safety. Offered nasal spray, which I feel could be helpful, but she refused. Somatoform disorder 3128 8847 F45.9 Shayla has limited insight regarding and resistance to somatoform disorder as contributo r to distress from physical symptoms. I'm full of piss and shit. Everythin g is stuck in me. I'm full of concrete. Refusing psychiatri c evaluation or care. Refusing meds. Anxiety disorder F41.9 Pt continues to express hopelessne ss, wishing I had never left the [facility] 2 years ago. I urged her to call 911 and present to crisis if she is feeling desperate or has desire for self harm. Pt refuses in patient treatment and outpt evaluation . I expressed my concerns and willingnes s to help in any way, with referrals, follow up and urgent care. Urged her to call if she changes her mind about in person visit or willingnes s to take medication . Request repeat visit 1 mo, sooner if needed. [id number] Brenda Aldrich MD [address] [place] [address] 03/19/2023 12:34:28 03/19/2023 14:36:01 Pain in throat 543839854 R07.0 Pt very upset, stating throat pain is severe, limiting ability to eat/drink other than water. Refusing in person exam due to anxiety and report of weakness. I explained need for physical examinatio n, pt states she will try to come in Friday if symptoms are not improving. In the meantime, given hx of candiasis, and low side effect/ris k potential of nystatin S&S, ok for empiric treatment. Dosing and use explained to pt. Strongly encouraged regular f/u as pt not seen in person 2018. Somatoform disorder 3129 1568 F45.9 Patient continues to display anxiety and express concern about chemical costello, chronic infection s, chronic constipati on but refuses in person visit or physical exam. This severely limits my ability to assess and treat her complaints . Her history is consistent with prior exams/disc ussions. I explained that I would be willing to fit her into my schedule any day if/when she is willing to come in, although there may be a wait. She expressed understand ing. Health Concerns Section Related Observation LastModified by Organization Detai ls LastModified Time None Recorded Concern Status LastModified by Organization Details LastModified Time None Recorded Advance Directives Directive None Recorded Payers Insurance Date Sequence Insurance Name Policy Number Policy Verduz[employer] Covered Member ID Verduz[employer] Member ID Guarantor Name 01/22/2021 1 [place]ICARE [place]: [employer] Shayla Farias [id number] Shayla Farias 01/22/2021 MEDICARE A-[place]: [facility] Shayla Farias [id number] Shayla Weller Vogt 05/07/2024 2 MEDICAID-[place]: [facility] Shayla Weller Vogt [id number] Shayla Weller Vogt 01/22/2021 MEDICARE A-[place]: [facility] Shayla Weller Vogt [id number] Shayla Weller Vogt 03/02/2021 3 MEDICARE B-[place]: [facility] Shayla Weller Vogt [id number] Shayla Weller Vogt 05/07/2024 1 [place]ICARE [place]: [facility] Shayla eWller Vogt [id number] Shayla Weller Vogt 10/28/2024 [facility] Shayla Weller Vogt [id number] Shayla Farias Notes Date Note Type Note Provider Name and Address Organization Details Recorded Time 1 text/html pt states she has been without her diazepam because her mom has not picked up the medication. She was on it, but then I got tired because of all the pills. Thinks she has been off it for a couple of days, she isn't really sure. She still feels terrible off the pills. I feel like we're missing something, I'm burning up everywhere. She continues to be in a lot of pain.Extremely discouraged. Still having trouble urinating and pooping. She tried colace, but states it didn't help. A bunch came out but I can't keep up with cleaning. I can smell it in my nose and in my mouth. Took a break from both senna and colace. Last normal BM was days ago, just bits and pieces since then. At other times she states: I can't smell and I can't taste. Brenda Aldrich MD [address] [place] [address], [place], [address], [facility] 03/07/2021 12:14:17 1 text/html phone call Whatever I eat I get a pain in my lower back. She denies any relationship to bowel or bladder but states she continues to have a hard time urinating. Everything is hurting too much Nothing helps. I never felt this bad 2 years ago. Pt states she does not want to be resuscitated in the event of sudden cardiac event takes diazepam twice a day. When I requested she tell me her exact dosing of diazepam, states I'm in too much pain to know anything right now. States not sleeping. States trazodone not Rf'd. Using [facility]. Does not feel able or safe to come in for in person office visit. Brenda Aldrich MD [address] [place] [address], [phone], [facility] 03/20/2021 18:30:04 1 text/html phone visitMom answers phone call, states pt is in a ball, not eating or drinking. She is urinating. Pt states she is in pain, really hot, can't eat, it hurts too much. States she is up 40# despite not eating or drinking. Mouth costello.Mom states she had irregular blotchy rash, like [place] on her back, chest and extremitiesnow she has red stripes on her back and fingerprints nothing on her faceMichelle joined call later in visit, complains about rash, pain, inability of health care system to address needs, inefficacy of meds to relieve pain and sleep, concern that something is inside poisoning her. States told it's all in my head but this isn't psych. Expresses regret about leaving the [facility], feels she was in much better health before she left for [place] 2 years ago. pt states my head is bigger she is requesting referral to GI due to worsening abdominal pain and fluid retention, constipation Brenda Aldrich MD [address] [place] [address], [phone], [facility] 04/04/2021 07:26:15 1 text/html phone visitpoor sleep, poor appetite, feels has trouble urinating and having BMsgaining weight despite not eating states None of the meds help. None of the inhalers help. They used to help. I can't breathe in or out of my nose states can't smell or taste States she stopped all the meds because they didn't helpstates they used to help, and she is distressed that nothing helps anymoreuses ambien in and out but then they started giving me different colored pills so I stopped taking it states she doesn't have any ambien right now, states not sleeping states not comfortable coming into the officevoices pain and discomfort with walkingfears of contaminationworried her things will get stolen if she leaves her house has refused psychiatric consultation with [facility] or elsewhere This is not a mental issue Brenda Aldrich MD [address] [place], [phone], [facility] 06/13/2021 13:17:17 3 text/html phone visitPt reports burning in her throat, states eyelashes missing on lower lid, was seeing double for a period of time, is concerned. I can't account for what's going on. States throat pain worse in the morning, having trouble swallowing x 2 days but has been able to drink water in sips. My bottom lip is burned off, everything is still burning. Worried she is having chemical costello. Denies exposure to any new chemicals or products. She states she is too worn out to be seen in person. Has not been seen since 2020. ED visits in 2021 with diagnoses somatic symptom disorder, non-compliance with care noted. States no regular BMs x weeks Brenda Aldrich MD [address] [place], [phone], [facility] 03/19/2023 14:02:54 OBGyn Episode No OBEpisode recorded.
--- NOTE | 2025-02-16 14:43 | MHC.EDTECH ---
Addendum entered by Kaitlynn Chiu 02/16/25 14:47: offer pt gingerale pt refused stated she allergic. Original Note: pt poc was checked rn noticed. pt feel Shakila tank due to the nature of injury holding on the food/drink discussed with a Pa if possible to offer drink to increase poc. Pa agreed when offering the beverage to pt the pt states she allergic and only drinks water.
[2025-02-16 14:46] LABS: Glucose, Whole Blood 69 mg/dL (60-115)
--- NOTE | 2025-02-16 14:58 | MHC.EDTECH ---
SUKH Linares suggested water with sugar packet or milk. I did bring ice water with sugar pack and milk as a backup. Pt stated she allergic to sugar and that she is lactose intolerant.
--- NOTE | 2025-02-16 15:16 | ECG_ITS ---
Test Reason : weakness Blood Pressure : */* mmHG Vent. Rate : 82 BPM Atrial Rate : 82 BPM P-R Int : 138 ms QRS Dur : 84 ms QT Int : 380 ms P-R-T Axes : 72 88 77 degrees QTcB Int : 443 ms Normal sinus rhythm Normal ECG No previous ECGs available Referred By: Arash Maynard Electronically Signed By: RYAN FREDERICK
--- NOTE | 2025-02-16 15:21 | ED_ITS ---
HPI - General Adult General Chief complaint: Neck Pain/Injury Stated complaint: Dizziness/weakness, recent fall, recent d/c [facility] Time Seen by Provider: 02/16/25 15:07 Source: patient and EMS Mode of arrival: EMS Limitations: other (psychiatric issues makes obtaining hx complex) History of Present Illness ED Provider: HPI narrative: 49-year-old woman presenting after EMS picked her up across the street from [facility], patient was just discharged from [facility] and was then found laying on the ground and complaining of head neck and back pain reports that she fell 3 days ago at [facility] and she was bagging them to take her to emergency department but that was never done and she states she has not been eating or drinking for the past 3 days, and also states before that she fell and she did go to [facility]. No SI or HI. Related Data Home Medications ?Medication ?Instructions ?Recorded ?Confirmed Unobtainable 02/17/25 02/17/25 Allergies Allergy/AdvReac Type Severity Reaction Status Date / Time almond Allergy Seizure Verified 02/16/25 13:11 [place] And Derivatives Allergy Seizure Verified 02/16/25 13:11 perfume Allergy Seizure Verified 02/16/25 13:11 Yeast Allergy Seizure Verified 02/16/25 13:11 lactose AdvReac Unknown Verified 02/17/25 12:35 sugar AdvReac Unknown Uncoded 02/17/25 12:35 Review of Systems 2 Constitutional: Constitutional: Reports as per [facility] Social History Social History Patient Tobacco Use Status: Never used Tobacco Use of substances other than those prescribed or required for medical reasons: No Advance Directives: No Advance Directives Information Provided: Yes Do you have a plan to hurt others: No Plan Nutrition Risks: No Nutritional Risk Patient : No Physical Exam ED Vital Signs: Vital Signs - 24 hr 02/16/25 18:19 02/16/25 19:57 02/17/25 08:23 Temperature 97.9 F 97.7 F Pulse Rate 78 73 88 Respiratory Rate 18 20 16 Blood Pressure 118/67 115/70 92/64 Pulse Oximetry 97 98 97 Oxygen Delivery Method Room Air Room Air Room Air BMI result Body Mass Index 26.5 Const Other: * Gen: ?Appears slightly older than stated age, anxious affect , no facial head trauma * HEENT: No scleral icterus, no blood noted at the oropharynx * Neck: Reports tenderness along her neck * CV: RRR, no obvious murmurs appreciated * Resp: ?No wheezing rales rhonchi no stridor moving air well * Abd: ?Bowel sounds are present, no tenderness no rebound no rigidity * MSK: FROM, strength 5/5 all extremities * Skin: Warm, dry, intact, * Neuro: ?Alert, able to provide some history, otherwise pressured speech, some delusions Course Course Course Narrative: Time: 09:21 Date: 02/17/25 Provider: Mary Mcdowell, DO Patient in physician observation for psychiatric evaluation.? No acute events reported overnight. No current complaints. VS stable.? Re-eval for today. I did order BMP as she was acidotic yesterday. Will continue to monitor. Reevaluation(s) Reevaluation #1: Rate: 82 Rhythm: NSR [place]: normal Normal P waves. Normal MARIEL. Normal QRS complex. ST T wave : normal no RONALD qTC: 443 prior studies: no acute ischemia The study has been interpreted contemporaneously by me. . Reevaluation #2: VÍCTOR 02/17/25 phsycian observation ended accepted to inpatient at 145pm Medications Administered Discontinued Medications Generic Name Dose Route Start Last Admin Trade Name Freq PRN Reason Stop Dose Admin Acetaminophen 975 mg 02/16/25 15:15 02/16/25 17:22 Acetaminophen 325 Mg Tablet PO 02/16/25 15:16 Not Given ONCE ONE Acetaminophen 975 mg 02/16/25 23:55 02/17/25 01:17 Acetaminophen 325 Mg Tablet PO 02/16/25 23:56 Not Given ONCE ONE Diazepam 2.5 mg 02/16/25 15:15 02/16/25 17:20 Diazepam 10 Mg/2 Ml Cartridge IVPUSH 02/16/25 15:16 2.5 mg STAT STA Administration Diphenhydramine HCl 50 mg 02/16/25 23:55 02/17/25 01:17 Diphenhydramine Hcl 25 Mg Capsule PO 02/16/25 23:56 Not Given ONCE ONE Diphenhydramine HCl 50 mg 02/17/25 01:25 02/17/25 01:34 Diphenhydramine Hcl 25 Mg Capsule PO 02/17/25 01:26 Not Given ONCE ONE Sodium Chloride 1,000 mls @ 999 mls/hr 02/16/25 15:15 02/16/25 20:01 Ns IV 02/16/25 16:15 Infused .Q1H1M TOYA Infusion Lorazepam 2 mg 02/16/25 23:55 02/17/25 01:33 Lorazepam 1 Mg Tablet PO 02/16/25 23:56 2 mg ONCE ONE Administration Lorazepam 2 mg 02/17/25 01:25 02/17/25 01:34 Lorazepam 1 Mg Tablet PO 02/17/25 01:26 Not Given ONCE ONE Medical Decision Making Medical Decision Making [facility] Narrative: We do not have much information on this patient in our system but I did review her outside records from a reverse then she was discharged from [facility] she has a lot of somatic delusions and although she reports she does not eat or drink according to the notes patient does eat and drink, she reports falling down 3 days ago and then not being allowed to go to the emergency department this is unlikely but she is complaining of headache and neck pain we will obtain further imaging, ultimately I believe she is going to be medically cleared and we will need care team evaluation to help with disposition, she does have a degree of psychiatric decompensation, she has a history of bipolar schizoaffective, delusional states, no SI or HI, reassuringly no facial had a bodily trauma is noted, hemodynamically stable. At least from what the patient told me it sounds like she was getting discharged from [facility] but she did not feel that she is ready for discharge and she likely crossed the street and lay on the ground and that is when EMS picked her up Differential Diagnosis Differential Diagnoses: The differential diagnosis associated with the presentation includes Psychiatric decompensation, trauma, syncope, seizure, dehydration, substance use disorder Admission/Observation Consideration of admission/observation: Escalation of care including admission/observation considered Lab Data [facility] Lab Attestation statement: I reviewed the patient's lab results. 02/16/25 16:58 02/17/25 09:30 Labs: Lab Results 02/16/25 02/16/25 02/16/25 Range/Units 13:35 16:58 21:45 WBC 6.7 (4.8-10.8) X10*3/uL RBC 5.05 (4.20-5.50) X10*6/uL Hgb 14.6 (12.0-16.0) g/dl Hct 45.5 (37.0-47.0) % MCV 90.1 (80.0-98.0) fL MCH 28.9 (27.0-33.0) pg MCHC 32.1 (31.0-35.0) g/dl RDW 14.5 (11.0-16.0) % Plt Count 362 (160-400) X10*3/uL MPV 10.7 (9.4-12.3) fL Immature Gran % (Auto) 0.3 (0.0-0.4) % Neut % (Auto) 52.1 (45-73) % Lymph % (Auto) 35.7 (20-40) % [place] % (Auto) 9.7 (2-11) % Eos % (Auto) 1.0 (0-4) % Baso % (Auto) 1.2 (0-2) % Lymph # (Auto) 2.4 (1.2-4.9) X10*3/uL [place] # (Auto) 0.7 (0.1-1.2) X10*3/uL Eos # (Auto) 0.1 (0.0-0.4) X10*3/uL Baso # (Auto) 0.1 (0.0-0.2) X10*3/uL Abs Immat Gran (auto) 0.02 (0.00-0.03) X10*3/uL Absolute Neuts (auto) 3.5 (2.0-8.3) x10*3/uL Absolute Nucleated RBC 0.000 (0.0-0.012) X10*3/uL Nucleated RBC % (auto) 0.0 (0.0-0.2) /100WBC Sodium 136 (135-145) mmol/L Potassium 4.3 (3.3-5.1) mmol/L Chloride 106 (96-108) mmol/L Carbon Dioxide 15 L (22-29) mmol/L Anion Gap 19 (12-20) BUN 12 (9-16) mg/dL Creatinine 0.77 (0.5-1.4) mg/dL Estim Creat Clear Calc 76.8 Estimated GFR > 60 POC Glucose 69 (60-115) mg/dL Random Glucose 63 (60-115) mg/dL Calcium 9.3 (8.4-10.2) mg/dL Total Bilirubin 0.7 (0.0-1.0) mg/dL AST 26 (5-31) U/L ALT 19 (0-31) U/L Alkaline Phosphatase 85 (39-117) U/L Total Protein 7.8 (6.5-8.0) g/dL Albumin 4.7 (3.5-5.0) g/dL Lipase 18 (8-78) U/L Urine Color Yellow Urine Appearance Clear Urine pH 5.0 (5.0-9.0) Ur Specific [place] 1.025 (1.005-1.025) Urine Protein 30 (1+) H (Neg-Trace) mg/dL Urine Glucose (UA) Negative (Negative) mg/dL Urine Ketones >=160 (Negative) mg/dL Urine Blood Negative (Negative) Urine Nitrite Negative (Negative) Ur Leukocyte Esterase Moderate (2+) H (Negative) Urine RBC 0-2 (0-2) /HPF Urine WBC 21-50 H (0-5) /HPF Ur Squamous Epith Cells 3-5 (0-2) /HPF Urine Bacteria None Seen (None Seen) Hyaline Casts 11-20 (0-2) /LPF Urine Opiates Screen Not Detected (Not Detect) Ur Buprenorphine Scrn Not Detected (Not Detect) ng/mL Ur Oxycodone Screen Not Detected (Not Detect) ng/mL Urine Methadone Screen Not Detected (Not Detect) ng/mL Urine Fentanyl Screen Not Detected (Not Detect) Ur Barbiturates Screen Not Detected (Not Detect) Ur Phencyclidine Scrn Not Detected (Not Detect) Ur Amphetamines Screen Not Detected (Not Detect) U Benzodiazepines Scrn Not Detected (Not Detect) Urine Cocaine Screen Not Detected (Not Detect) U Marijuana (THC) Screen Not Detected (Not Detect) Ethyl Alcohol < 10 mg/dL 02/17/25 Range/Units 09:30 WBC (4.8-10.8) X10*3/uL RBC (4.20-5.50) X10*6/uL Hgb (12.0-16.0) g/dl Hct (37.0-47.0) % MCV (80.0-98.0) fL MCH (27.0-33.0) pg MCHC (31.0-35.0) g/dl RDW (11.0-16.0) % Plt Count (160-400) X10*3/uL MPV (9.4-12.3) fL Immature Gran % (Auto) (0.0-0.4) % Neut % (Auto) (45-73) % Lymph % (Auto) (20-40) % [place] % (Auto) (2-11) % Eos % (Auto) (0-4) % Baso % (Auto) (0-2) % Lymph # (Auto) (1.2-4.9) X10*3/uL [place] # (Auto) (0.1-1.2) X10*3/uL Eos # (Auto) (0.0-0.4) X10*3/uL Baso # (Auto) (0.0-0.2) X10*3/uL Abs Immat Gran (auto) (0.00-0.03) X10*3/uL Absolute Neuts (auto) (2.0-8.3) x10*3/uL Absolute Nucleated RBC (0.0-0.012) X10*3/uL Nucleated RBC % (auto) (0.0-0.2) /100WBC Sodium 140 (135-145) mmol/L Potassium 4.2 (3.3-5.1) mmol/L Chloride 110 H (96-108) mmol/L Carbon Dioxide 18 L (22-29) mmol/L Anion Gap 16 (12-20) BUN 12 (9-16) mg/dL Creatinine 0.69 (0.5-1.4) mg/dL Estim Creat Clear Calc 85.8 Estimated GFR > 60 POC Glucose (60-115) mg/dL Random Glucose 74 (60-115) mg/dL Calcium 8.5 D (8.4-10.2) mg/dL Total Bilirubin (0.0-1.0) mg/dL AST (5-31) U/L ALT (0-31) U/L Alkaline Phosphatase (39-117) U/L Total Protein (6.5-8.0) g/dL Albumin (3.5-5.0) g/dL Lipase (8-78) U/L Urine Color Urine Appearance Urine pH (5.0-9.0) Ur Specific [place] (1.005-1.025) Urine Protein (Neg-Trace) mg/dL Urine Glucose (UA) (Negative) mg/dL Urine Ketones (Negative) mg/dL Urine Blood (Negative) Urine Nitrite (Negative) Ur Leukocyte Esterase (Negative) Urine RBC (0-2) /HPF Urine WBC (0-5) /HPF Ur Squamous Epith Cells (0-2) /HPF Urine Bacteria (None Seen) Hyaline Casts (0-2) /LPF Urine Opiates Screen (Not Detect) Ur Buprenorphine Scrn (Not Detect) ng/mL Ur Oxycodone Screen (Not Detect) ng/mL Urine Methadone Screen (Not Detect) ng/mL Urine Fentanyl Screen (Not Detect) Ur Barbiturates Screen (Not Detect) Ur Phencyclidine Scrn (Not Detect) Ur Amphetamines Screen (Not Detect) U Benzodiazepines Scrn (Not Detect) Urine Cocaine Screen (Not Detect) U Marijuana (THC) Screen (Not Detect) Ethyl Alcohol mg/dL Radiology Impression Discussion of test interpretation with radiology: I have reviewed the radiologist's reading. Radiologist Impression: [place] [id number] CT Scan Report Signed Patient: Shayla Farias MR#: [id number] : 1975 Acct:[id number] Age/Sex: 49 / F ADM Date: 02/16/25 Loc: HO.ED CT/CT head/brain wo IV con IMPRESSION: No acute intracranial abnormality. CT/CT cervical spine wo IV con IMPRESSION: No acute abnormality. Multilevel degenerative disc disease and facet arthropathy Possible calcific tendinitis involves longus coli. 1.9 x 2.9 cm left thyroid gland nodule. Follow-up nonemergent thyroid ultrasound. Discharge Plan Discharge Clinical Impression: Dizziness, Bipolar affect, depressed, Post traumatic stress disorder (PTSD) Patient Disposition: Admitted As Inpatient Interventions: Admission Worksheet (ED) Last Done: 02/17/25 13:44 Discharge Date/Time: 02/17/25 14:53
--- NOTE | 2025-02-16 15:41 | MHC.EDTECH ---
attempted to do ekg on pt. Pt is not in the room a the moment.
--- NOTE | 2025-02-16 15:42 | MHC.CARE ---
Addendum entered by Génesis Thomas LCSW 02/16/25 21:07: CARE Team also contacted [facility] crisis who denied previous contact with this Pt. [facility] Crisis report they last assessed Pt 3 years ago. Original Note: CARE Team contacted [facility] who reports that Pt presented from [facility] to [facility] for medical reasons on 02/07/25, was cleared and transported back to [facility]. [facility] crisis did not assess this Pt.
--- NOTE | 2025-02-16 16:28 | PC.NURSE ---
Two attempts for IV placement by this RN with no success. SUKH Finn attempted x2 with no success. Will alert ED provider that u/s guided IV needed for IVF, medication and blood work.
[2025-02-16 17:04] LABS: MANUAL DIFF FLAG NO
[2025-02-16 17:16] LABS: Hematocrit 45.5 % (37.0-47.0); Hemoglobin 14.6 g/dl (12.0-16.0); Imm Gran Abs Auto 0.02 X10*3/uL (0.00-0.03); Imm Gran Pct Auto 0.3 % (0.0-0.4); Lymphocytes Absolute Auto 2.4 X10*3/uL (1.2-4.9); Mean Corpuscular HGB Conc 32.1 g/dl (31.0-35.0); Mean Corpuscular Hemoglobin 28.9 pg (27.0-33.0); Mean Corpuscular Volume 90.1 fL (80.0-98.0); NRBC Abs Auto 0.000 X10*3/uL (0.0-0.012); NRBC Pct Auto 0.0 /100WBC (0.0-0.2); Platelet Count 362 X10*3/uL (160-400); Red Blood Count 5.05 X10*6/uL (4.20-5.50); White Blood Count 6.7 X10*3/uL (4.8-10.8)
[2025-02-16] MEDS: diazePAM 10 MG/2 ML CARTRIDGE 2.5 MG IVPUSH (17:20)
[2025-02-16 17:24] LABS: Alanine Aminotransferase 19 U/L (0-31); Albumin Level 4.7 g/dL (3.5-5.0); Alkaline Phosphatase 85 U/L (39-117); Anion Gap 19 (12-20); Aspartate Amino Transferase 26 U/L (5-31); Blood Urea Nitrogen 12 mg/dL (9-16); Calcium 9.3 mg/dL (8.4-10.2); Carbon Dioxide 15 mmol/L (22-29); Chloride 106 mmol/L (96-108); Creatinine Clr Calc Pharmacy 76.8; Estimated Glomerular Filt Rate > 60; Lipase 18 U/L (8-78); Potassium 4.3 mmol/L (3.3-5.1); Sodium 136 mmol/L (135-145); Total Protein 7.8 g/dL (6.5-8.0)
[2025-02-16 18:19] VITALS: BP 118/67; PULSE 78; RESP 18; TEMP 36.6; O2SAT 97
--- NOTE | 2025-02-16 19:22 | PC.NURSE ---
this rn assumed care of pt, pt resting in stretcher, no acute distress noted
[2025-02-16 19:57] VITALS: BP 115/70; PULSE 73; RESP 20; TEMP 36.5; O2SAT 98
--- NOTE | 2025-02-16 20:53 | PC.NURSE ---
This RN assumed pt care @ 2052 Pt a&Ox4, no signs of distress. Plan of care ongoing.
[2025-02-16 22:06] LABS: Cannabinoid Screen Urine Not Detected (Not Detect)
[2025-02-16 22:15] LABS: Appearance Urine Clear; Glucose Urine UA Negative (Negative); PH 5.0 (5.0-9.0); Specific Gravity - Urine 1.025 (1.005-1.025); UMIC TRIGGER UACC YES
[2025-02-16 22:33] LABS: UACC Culture Trigger YES
--- NOTE | 2025-02-16 23:15 | PC.NURSE ---
Report received and care assumed at 2300. Pt found to be conversing with care team upon RN's arrival on the unit. Pt is currently calm and cooperative, she reports 9/10 posterior head pain that radiates down the left side of her neck. She is currently requesting medication to assist with this pain as well as her anxiety and sleeping needs. The pt expressed frustration surrounding previous experiences and feelings of being dismissed at previous facilities. She currently is requesting IV pain medication as well as small pills as she reports difficulty swallowing s/p recent fall earlier in the week, however the pt is currently managing all her secretions with ease and without issue and it was reported by the previous RN that the patient tolerated eating 4 cheese sticks without issue. Careteam has been to bedside to assess the patient but she continues to refuse to provide consent for careteam to outreach [facility] to get information regarding her recent stay. MD Ojeda was outreached and made aware of the pt's request and pain and RN is awaiting new orders.
--- NOTE | 2025-02-17 01:24 | PC.NURSE ---
RN to back room where patient is located to provide medications per MAR. Pt was found to be resting with eyes closed, easily arousable to verbal stimuli and conversing freely without any obvious distress, deficits, or issues. The pt reported that I'm seeing two of you which she stated multiple times during our conversation as she explained her frustration with care she has been receiving throughout the recent facilities. The pt declined the benadryl as she states it will make her more dehydrated and she also declined the tylenol as she states that won't do anything . RN consulted with MD Ojeda regarding the pt's reports as there were no findings of these reports in the chart review provided. Per pt's head CT was clear and RN was given the okay to provide patient with prescribed ativan.
--- NOTE | 2025-02-17 07:23 | PC.NURSE ---
Assumed care of patient at 0645, patient appears to be in no apparent distress this am, sleeping, respirations even and unlabored. Continue plan of care for CARE team follow up
[2025-02-17 08:23] VITALS: BP 92/64; PULSE 88; RESP 16; O2SAT 97
--- NOTE | 2025-02-17 08:57 | MHC.CARE ---
Pt meets the criteria for IPLOC. Section 12a in chart. ED provider in agreement.
--- NOTE | 2025-02-17 10:02 | PHA.MEDREC ---
Pharmacy Consult ? Medication Reconciliation Pharmacy has completed the medication reconciliation. Spoke with pt and she confirmed she is not taking any medications at this time.
[2025-02-17 10:24] LABS: Anion Gap 16 (12-20); Blood Urea Nitrogen 12 mg/dL (9-16); Calcium 8.5 mg/dL (8.4-10.2); Carbon Dioxide 18 mmol/L (22-29); Chloride 110 mmol/L (96-108); Creatinine Clr Calc Pharmacy 85.8; Estimated Glomerular Filt Rate > 60; Potassium 4.2 mmol/L (3.3-5.1); Sodium 140 mmol/L (135-145)
--- NOTE | 2025-02-17 11:34 | PHA.MEDREC ---
Pharmacy Consult ? Medication Reconciliation Med rec incomplete. Patient states she is not on any medications, but Patient recently discharged from [facility]. Patient will not sign a release of information, unable to obtain med list .
[2025-02-17 15:00] VITALS: PULSE 114; RESP 16; TEMP 36.6; O2SAT 96; BMI 26.5
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
[2025-02-17 20:00] VITALS: RESP 16
[2025-02-18 08:23] LABS: Alanine Aminotransferase 16 U/L (0-31); Albumin Level 4.1 g/dL (3.5-5.0); Alkaline Phosphatase 81 U/L (39-117); Anion Gap 13 (12-20); Aspartate Amino Transferase 18 U/L (5-31); Blood Urea Nitrogen 18 mg/dL (9-16); Calcium 9.1 mg/dL (8.4-10.2); Carbon Dioxide 21 mmol/L (22-29); Chloride 109 mmol/L (96-108); Cholesterol 254 mg/dL (<200); Creatinine Clr Calc Pharmacy 83.4; Estimated Glomerular Filt Rate > 60; HDL Cholesterol 45 mg/dL (>40); Potassium 4.0 mmol/L (3.3-5.1); Sodium 139 mmol/L (135-145); Total Protein 6.6 g/dL (6.5-8.0); Triglycerides 107 mg/dL (<150)
[2025-02-18 08:28] LABS: Hemoglobin A1C 105.7965 umol/L; Total Hemoglobin (HGBA1C) 3479.6599 umol/L
[2025-02-18 08:43] LABS: Free T4 (Free Thyroxine) 1.07 ng/dL (0.71-1.85); Thyroid Stimulating Hormone 2.39 uIU/mL (0.32-4.0)
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
[2025-02-18] MEDS: Clotrimazole 1 % Cream 15 GM TUBE 1 APPL TOPICAL ×2 (14:07→20:40)
[2025-02-18 14:41] VITALS: BP 106/68; PULSE 90; RESP 18; TEMP 36.6; O2SAT 97
--- NOTE | 2025-02-18 14:48 | PC.NURSE ---
Pt approached this jingle writer stating I ate a banana and now I am having an allergic reaction to it. This jingle writer asked pt what symptoms pt was experiencing and pt stated my butt and legs feel like their swelling and warm and they are starting to get hives. This jingle writer asked pt if she was experiencing any other symptoms and pt reported feeling dizzy, disoriented, in pain everywhere and having a scratchy throat. This jingle writer had the pt sit down, gave the pt water, and checked the pt's vitals. Pt's vitals WNL. Pt is requesting benadryl. This jingle writer notified the hospitalist and is waiting for her reply. Will continue to monitor.
[2025-02-18] MEDS: Lidocaine 4 % Patch ADH..PATCH 1 PATCH TRANSDERMA (15:08)
[2025-02-19 07:31] VITALS: BP 86/48; PULSE 86; RESP 16; TEMP 36.2; O2SAT 97
[2025-02-19] MEDS: Lidocaine 4 % Patch ADH..PATCH 1 PATCH TRANSDERMA (10:15)
[2025-02-19] MEDS: Clotrimazole 1 % Cream 15 GM TUBE 1 APPL TOPICAL ×2 (10:17→20:35)
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
[2025-02-20 08:00] VITALS: BP 124/75; PULSE 83; RESP 16; TEMP 36.6; O2SAT 95
--- NOTE | 2025-02-20 15:17 | MHC.SLORD ---
Speech Language Pathology Order Status: BUCKLE ASSEMBLER assessment initated 02/20, pt c/o hx of new onset dysphagia, with concomitant changes to voice production. Pt endorsed hx of mild TMJ that has worsened, which was observed with depression/elevation/occlusion assessment, audible/tactile 'clicking' in jaw upon depression/elevation. Pt cannot chew in rotary motion. Pt endorsed moderate to significant difficulty with tongue mobility, stating she cannot swallow food. Pt reported head and neck pain, occurring in C-spine (pt gestured to back of neck on L side and said Like in the ball and socket part ). Pt also reports new onset blurred vision and changes to her hearing. Pt feels at times she cannot breathe. Pt feels her body has gotten more stiff over the past few weeks, with all symptoms occurring s/p fall. BUCKLE ASSEMBLER provided education, plan to assess pt PO intake tomorrow. Question involvement of CN5 or C spine, though head and spine CT are non-acute. With symptoms that are deemed somatic, BUCKLE ASSEMBLER tx is appropriate to address education, management and understanding/use of oromotor and pharyngeal mechanism for speech/swallow. notified of plan to assess pt tomorrow. RD consulted to see if pt can obtain sugar free ice cream (as pt did perseverate on this food item).
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
[2025-02-20] MEDS: Clotrimazole 1 % Cream 15 GM TUBE 1 APPL TOPICAL (21:05)
--- NOTE | 2025-02-21 | EEG_ITS ---
This is a 16 channel EEG with an EKG lead. Patient is reported awake during the tracing. Background EEG rhythm is 5-20 microvolt 12-14 hertz posteriorly and lower amplitude fast anteriorly. Photic stimulation does not produce any significant abnormality. Hyperventilation is not performed. Cardiac lead does not reveal any significant abnormality. No sharp wave spikes or paroxysmal tendency noted. Impression: Unremarkable EEG MTDD
[2025-02-21] MEDS: Lidocaine 4 % Patch ADH..PATCH 1 PATCH TRANSDERMA (09:15)
[2025-02-21] MEDS: Clotrimazole 1 % Cream 15 GM TUBE 1 APPL TOPICAL ×2 (09:16→20:26)
--- NOTE | 2025-02-21 14:56 | MHC.SL.SWA ---
Speech Pathologist Impression: Pt complaints are concerning for question of dysphagia etiology, per her description there are characteristics of Myesthenia Gravis, pharyngeal thyroid involvement, and esophageal dysfunction. E COMMERCE MERCHANDISING COORDINATOR recommends consultation with neurology, gastroenterology, and ENT. Risk of Aspiration Due to: Hx of new onset dysphagia Question of dysphagia pathology Dysphasia Diet Status: Liquid Consistency and Strategies for Safe Swallow: Liquid Intake Recommendation: Thin Liquid Intake Strategies: Solid Food Consistency: Dietary Recommendations: Regular Additional Modifications to Solid Foods: Oral Medication Intake: Whole with Liquid Please contact the pharmacy regarding appropriate crushable or liquid drug formulations that are available whenever modified delivery is recommended. Compensatory Strategies and Precautions to be Taken for Safe Swallow: Supervision While Eating and Drinking for Safe Swallow: None Needed Foods to Avoid: Swallowing Recommended Treatments: Recommendation for Speech: Inpatient Speech Therapy Comment: Pt complained of difficulty opening jaw, thickness sensation of tongue, inability to consistently swallow, and head/neck heaviness. Pt reports onset of physical symptoms of stiffness, weakness, difficulty swallowing and changes to voice was several weeks ago. [place] [facility], pt now endorses worsening dysphagia s/p fall. Pt seen 02/20 for clinical swallow evaluation but she did not want to trial PO. ROM of lips/tongue/jaw assessed. Pt unable to depress jaw beyond a few centimeters, with audible clicking/popping of TMJ. Pt unable to chew in rotary motion and endorsed pain on back of L side of neck. Pt unable to protrude/retract tongue volitionally. Pt unable to elicit volitional swallow, though reflexive swallow occurred several times during conversation. Pt voice absent of wetness, but she states her voice has changed. Pt also feels she cannot eat as she will regurgitate food. No PO trials presented 02/20, pt participated in clinical bedside swallow 02/21. Pt ate a few small bites of turkey wrap and loaded baked potato without overt s/s of aspiration. Mild oral phase dysphagia observed d/t difficulty chewing. Pt sipped liquids to moisten bolus. Anterior to posterior transit and trigger of pharyngeal swallow WNL across several bites; however, pt endorsed increased weakness, sensation of stiffness and concern she my aspirate. E COMMERCE MERCHANDISING COORDINATOR provided education and review of suggestions to improve pt understanding and use of oropharyngael musculature during PO intake. Pt did not want to eat more than a few bites/sips of water. Pt ate sugar free ice cream when staff arrived with item as requested by E COMMERCE MERCHANDISING COORDINATOR from RD. E COMMERCE MERCHANDISING COORDINATOR intervention indicated given nature of pt complaints. Consider need for MBSS. Frequency/Duration: Date Range for Service Req: Timeline to reassess: Edger Saw Operator Clinican/Clinical Fellow: No Supervisory Statement: I have reviewed and agree with the student/clinical fellow's documentation: N/A Speech Language Pathologist: Samira Rodrigez M.S., CCC-E COMMERCE MERCHANDISING COORDINATOR
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
--- NOTE | 2025-02-21 17:07 | MHC.SLORD ---
Speech Language Pathology Order Status: MBSS is scheduled for 14:[address] Mar notified via Urjanet Message.
[2025-02-21 20:00] VITALS: RESP 16
[2025-02-22] MEDS: Magnesium Hydrox/Alum Hydrox 30 ML ORAL.SUSP PO (02:26)
[2025-02-22] MEDS: Clotrimazole 1 % Cream 15 GM TUBE 1 APPL TOPICAL (08:55)
[2025-02-22 10:01] LABS: Bacterial Vaginosis PCR NEGATIVE (Negative); Candida Group PCR NOT DETECTED (Not Detect); Candida glab krusei PCR NOT DETECTED (Not Detect); Trichomonas vaginalis PCR NOT DETECTED (Not Detect)
--- NOTE | 2025-02-22 14:49 | MHC.SPEECHCO ---
Patient seen for MBSS. Patient w/ multiple complaints related to swallow, vague at times, stating liquids feel weird, but unable to further elaborate, reports throat pain and food feeling stuck in her throat, onset 6 months ago. Trials included applesauce, chicken salad, and thin liquid. Patient refused offerings of solids (Edith Doone, saltine crackers) d/t concerns of sugar/yeast content. MBSS however was unremarkable. No evidence of aspiration or penetration. No significant residuals. Good oral and pharyngeal clearance. Recommend continue on regular texture solids and thin liquids, pills whole in liquid. Full report to follow.
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
[2025-02-22] MEDS: OLANZapine ODT 10 MG TAB.RAPDIS 5 MG TRANSLINGU (21:46)
[2025-02-23] MEDS: Clotrimazole 1 % Cream 15 GM TUBE 1 APPL TOPICAL (08:36)
[2025-02-23 09:02] VITALS: BP 125/75; PULSE 86; RESP 17; O2SAT 98
--- NOTE | 2025-02-23 10:07 | MHC.SL.IMP ---
Date of Plan of Treatment: 02/23/24 Onset of Symptoms/Illness: 02/18/25 Date Treatment Started: 02/20/25 Admitting Diagnosis: Bipolar affect, depressed, PTSD, dysphagia Primary Speech & Language Diagnosis: R13.11 Oral Phase Dysphagia Secondary Speech & Language Diagnosis: R13.14 Pharyngoesophageal Phase Dysphagia Reason for Today's Visit: 58545 Modified Barium Swallow Study Pre-evaluation Dietary Consistencies: Regular Pre-evaluation Liquid Consistency: Thin Pre-evaluation Medication Administration: Whole with Liquid Medical History: Modified Barium Swallow Study Fluoroscopic Evaluation of Swallowing Function CPT Code 38414 Evaluation Year: 2024 Reason for Study: Patient reporting difficulty swallowing. Referring Physician: Andressa Neves NP Evaluating Clinician: Krista Khan MA, CCC-[employer] Study Number: 1 Patient Name: Shayla Farias Status: Inpatient Age: 49 Sex: Female Medical History Bipolar schizoaffective Current (pre-evaluation) Intake/Diet: Route: PO Diet Grade: Regular Liquid Consistencies: Thin Pre-Study Functional Oral Intake Scale (FOIS): 7- Total oral intake with no restrictions Pain: None reported at time of study SUBJECTIVE: Patient is a 49 year old female sent for MBSS to further evaluate extent of oropharyngeal dysphagia. Patient was seen by [employer] for clinical swallow evaluation on 02/21, with multiple reported complaints including difficulty opening jaw, thickness sensation of tongue, inability to consistently swallow, and head/neck heaviness. Observations of patient feeding were largely unremarkable, although patient was observed to chew solids slowly. No overt signs/symptoms of aspiration were noted. Today patient was vague when describing her symptoms, stating that ?it feels weird to swallow water,? but unable to further elaborate on this. She endorsed feeling food get stuck in her throat. Food and Liquid Trials: Oral Impairment: Lip Closure: 0=No labial escape Oral Impairment: Tongue Control During Bolus Hold: 2=Posterior escape of less than half of bolus Oral Impairment: Bolus Preparation/Mastication: 0=Timely and efficient chewing and mashing Oral Impairment: Bolus Transport/Lingual Motion: 1= Delayed initiation of tongue motion Oral Impairment: Oral Residue: 1=Trace residue lining oral structures Oral Impairment:Initiation of Pharyngeal Swallow: 3=Bolus head in pyriforms Pharyngeal Impairment: Soft Palate Elevation: 0=No bolus between soft palate (SP)/pharyngeal wall (PW) Pharyngeal Impairment: Laryngeal Elevation: 0=Complete superior movement of thyroid cartilage (see description) Pharyngeal Impairment: Anterior Hyoid Excursion: 0=Complete anterior movement Pharyngeal Impairment: Epiglottic Movement: 0=Complete inversion Pharyngeal Impairment: Laryngeal Vestibular Closure:: 0=Complete: no air/contrast in laryngeal vestibule Pharyngeal Impairment: Pharyngeal Stripping Wave: 0=Present: complete Pharyngeal Impairment: Pharyngeal Contraction: Did not test Pharyngeal Impairment: Pharyngoesophageal Segment Openin=Complete distension and complete duration: no obstruction of flow Pharyngeal Impairment: Tongue Base (TB) Retraction: 0=No contrast between tongue base and posterior pharyngeal wall Pharyngeal Impairment: Pharyngeal Residue: 0=Complete pharyngeal clearance Pharyngeal Impairment: Esophageal Clearance Upright Position: Did not test Impressions and Recommendations OBJECTIVE: Time-out: performed at 14:15 Evaluation Start: 14:05; Stop: 14:10 Patient Positioning: Seated 70-90 degrees Viewing Planes: LATERAL ONLY Contrast: MBSImP? Standardized Protocol using commercially prepared, standardized Barium viscosities, including: Varibar? THIN LIQUID (40% w/v, <15 cps) , Varibar? PUDDING (40% w/v, <0063-8076 cps) MBSImP ID: [id number] MBSImP Results: Lip closure for intraoral bolus containment resulted in no labial escape. Tongue control during bolus hold resulted in posterior escape of less than half of the bolus. Bolus preparation and mastication resulted in timely and efficient chewing and mashing. Bolus transport/lingual motion demonstrated delayed initiation of tongue motion. Oral residue was a trace, lining oral structures. Initiation of the pharyngeal swallow occurred when the bolus head was in the pyriform sinuses. Soft palate elevation resulted in no bolus between the soft palate and the pharyngeal wall. Laryngeal elevation demonstrated complete superior movement of the thyroid cartilage with complete approximation of the arytenoids to the epiglottic petiole. Anterior hyoid excursion demonstrated complete anterior movement. Epiglottic movement resulted in complete inversion. Laryngeal vestibular closure was complete, as indicated by no air or contrast within the laryngeal vestibule at the height of the swallow. Pharyngeal stripping wave was present and complete. Pharyngeal contraction could not be determined due to logistical reasons not related to physiologic impairment. Pharyngoesophageal segment opening was completely distended for complete duration with no obstruction of bolus flow. Tongue base retraction allowed no contrast between the retracted tongue base and the posterior pharyngeal wall. Pharyngeal residue was not present. There was complete pharyngeal clearance. Esophageal clearance in the upright position could not be assessed due to logistical reasons not related to physiologic impairment. Oral Impairment Score: 6 Pharyngeal Impairment Score: 0 (absence of score, component 13) Esophageal Impairment Score: --- (absence of score, component 17) Laryngeal Penetration and Aspiration: Neither penetration nor aspiration was observed in today's study with Pudding-thick, Ground, Thin. ASSESSMENT: This exam was performed by the radiologist and the speech pathologist. Patient was seated upright in a chair for lateral view only. She was able to feed herself without difficulty and trialed the following consistencies: Thin liquid (individual cup sips & rapid sequential cup sips) Puree (mixture applesauce w/ barium pudding) Ground (mixture chicken salad w/ barium pudding) Patient was offered multiple available options in order to trial regular texture solid, including saltines and Edith Doone cookies, however, patient declined all, expressing her concern for their sugar/yeast contents. Patient also took limited trials of the chicken salad d/t complaints of its taste. Adequate lip closure with no anterior loss of bolus. Posterior lingual motion was mildly delayed, with brisk movement. There was a small amount of contrast which escaped posteriorly into the pharynx prior to productive lingual movement. Mastication was timely and efficient. Trace lingual residue cleared on secondary swallow. Pharyngeal swallow trigger was delayed, initiated as the bolus head reached the pyriforms. No evidence of nasopharyngeal reflux. Complete laryngeal elevation with complete epiglottic inversion and complete laryngeal vestibular closure. No evidence of aspiration or penetration. There was complete pharyngeal clearance. Liquid Intake Recommendation: Thin Liquid Intake Strategies: Unrestricted Dietary Recommendations: Regular Medication Administration: Whole with Liquid Please contact the pharmacy regarding appropriate crushable or liquid drug formulations that are available whenever modified delivery is recommended. Compensatory Strategies Recommended: Sitting Upright (90 deg), Small Bites and Sips, Alternate Liquids/Solids, Rate of Ingestion Change Supervision during eating and or drinking: None Needed Recommendation for Speech Therapy: NA:Typical Evaluation Text Comment: Intake Recommendations: Route: PO Diet Grade: Regular Liquid Consistencies: Thin Post-Study Functional Oral Intake Scale (FOIS): 7- Total oral intake with no restrictions Mild oral phase dysphagia, characterized by premature posterior spillage, delayed AP transport, and delayed swallow trigger. Trace lingual residue cleared completely with secondary swallow. Pharyngeal phase was largely unremarkable. Good airway protection with no evidence of tracheal aspiration or penetration on solid and liquid trials of various consistencies. Good vallecular and pyriform clearing. Therapy Recommendations: Recommend continue on unmodified dietary textures- REGULAR texture solids and THIN liquids, with pills WHOLE in LIQUID. Further speech therapy is not warranted at this time, as patient?s swallow is deemed functional. MBSS revealed good oral and pharyngeal clearance; no evidence of aspiration. If patient?s symptoms persist, patient may benefit GI consult to further investigate. Clinician - Supplemental, Miscellaneous Communication: It is important to note MBSS objective studies are snapshots in time and Patient function might vary with factors such as time of day or concomitant medical conditions. For this reason, the final treatment plan for this patient should rest with their medical care team. Additional recommendations should be considered with the totality of the Patient in mind. Thank for the opportunity to participate in the care of this patient. If you have any questions about the content of this report, please contact the [facility] at [facility]. Education: Education regarding findings from today's study and plans for therapy were provided to Patient only through Verbal Instruction. Understanding was expressed by the Patient only. Division Supervisor Clinician/Clinical Fellow: No Supervisory Statement: N/A Speech Language Pathologist: Krista Khan M.A., [facility]-[employer] [employer]
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
[2025-02-23] MEDS: OLANZapine ODT 10 MG TAB.RAPDIS 5 MG TRANSLINGU (21:07)
[2025-02-24 08:00] VITALS: BP 126/60; PULSE 99; RESP 16; TEMP 36.3; O2SAT 94
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
[2025-02-24 20:00] VITALS: BP 117/71; PULSE 85; RESP 16; TEMP 37.1; O2SAT 98
[2025-02-24] MEDS: OLANZapine ODT 10 MG TAB.RAPDIS TRANSLINGU (20:47)
[2025-02-24] MEDS: Clotrimazole 1 % Cream 15 GM TUBE 1 APPL TOPICAL (21:09)
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
[2025-02-25 20:00] VITALS: BP 117/74; PULSE 102; RESP 16; TEMP 36.4; O2SAT 96
[2025-02-25] MEDS: OLANZapine ODT 10 MG TAB.RAPDIS TRANSLINGU (20:06)
[2025-02-26] MEDS: Clotrimazole 1 % Cream 15 GM TUBE 1 APPL TOPICAL (00:51)
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
[2025-02-26 20:00] VITALS: BP 123/77; PULSE 96; RESP 16; TEMP 37.4; O2SAT 96
[2025-02-26] MEDS: OLANZapine ODT 10 MG TAB.RAPDIS TRANSLINGU (22:26)
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
[2025-02-27 20:25] VITALS: BP 118/65; PULSE 90; RESP 20; TEMP 37.4
[2025-02-27] MEDS: OLANZapine ODT 10 MG TAB.RAPDIS TRANSLINGU (22:13)
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
== END 2025-02-28 11:07 | disposition home or self-care (01) | DRG 885 ==
LOC: HO.ED 20:49 → HO.PADLT16 02-17 13:27
PROVIDERS: Emergency Medicine; Internal Medicine; Nurse Practitioner Family; Admitting Provider Nurse Practitioner Psychiatric/Mental Health; Emergency Provider Emergency Medicine; Visit Provider Nurse Practitioner Psychiatric/Mental Health
DX: F31.81 Bipolar II disorder (principal); E04.1 Nontoxic single thyroid nodule; R13.10 Dysphagia, unspecified; F43.10 Post-traumatic stress disorder, unspecified; Z79.899 Other long term (current) drug therapy
CPT/HCPCS: 36415; 70450; 72125; 74230; 80048; 80053; 80061; 80307; 81001; 81003; 81515; 82947; 83036; 83690; 84439; 84443; 85025; 87086; 92610; 92611; 93005; 95816; 99285; J3360; S9485

== ENCOUNTER → 2025-02-16 15:16 | Outpatient (BNV) | payer MEDICAID, SELFPAY | PROVIDERS: Emergency Provider Emergency Medicine; Visit Provider Radiology Diagnostic Radiology | DX: M50.30 Other cervical disc degeneration, unspecified cervical region (principal); M46.92 Unspecified inflammatory spondylopathy, cervical region; E04.1 Nontoxic single thyroid nodule; R56.9 Unspecified convulsions; W19.XXXA Unspecified fall, initial encounter | CPT/HCPCS: 70450; 72125 ==

== ENCOUNTER → 2025-02-16 15:16 | Outpatient (BNV) | payer MEDICAID, SELFPAY | PROVIDERS: Admitting Provider Nurse Practitioner Psychiatric/Mental Health; Emergency Provider Emergency Medicine; Visit Provider Internal Medicine | DX: R53.1 Weakness (principal) | CPT/HCPCS: 93010 ==

== ENCOUNTER 2025-02-17 12:25 | Outpatient (BNV) | payer MEDICARE, MEDICAID, SELFPAY | END 2025-02-21 13:15 | PROVIDERS: Admitting Provider Nurse Practitioner Psychiatric/Mental Health; Emergency Provider Emergency Medicine; Visit Provider Psychiatry & Neurology Neurology | DX: R56.9 Unspecified convulsions (principal) | CPT/HCPCS: 95816 ==

== ENCOUNTER 2025-02-17 12:25 | Outpatient (BNV) | payer MEDICARE, MEDICAID, SELFPAY | END 2025-02-22 13:25 | PROVIDERS: Admitting Provider Nurse Practitioner Psychiatric/Mental Health; Emergency Provider Emergency Medicine; Visit Provider Radiology Diagnostic Radiology | DX: R13.10 Dysphagia, unspecified (principal) | CPT/HCPCS: 74230 ==

== ENCOUNTER → 2025-02-17 12:25 | Outpatient (BNV) | payer MEDICARE, MEDICAID, SELFPAY | PROVIDERS: Admitting Provider Nurse Practitioner Psychiatric/Mental Health; Emergency Provider Emergency Medicine; Visit Provider Psychiatry & Neurology Psychiatry | DX: F31.32 Bipolar disorder, current episode depressed, moderate (principal); F43.11 Post-traumatic stress disorder, acute; R13.10 Dysphagia, unspecified | CPT/HCPCS: 99231; 99232; 99238 ==

== ENCOUNTER → 2025-02-17 12:25 | Outpatient (BNV) | payer MEDICARE, MEDICAID, SELFPAY | PROVIDERS: Admitting Provider Nurse Practitioner Psychiatric/Mental Health; Emergency Provider Emergency Medicine; Visit Provider Nurse Practitioner Family | DX: R13.10 Dysphagia, unspecified (principal) | CPT/HCPCS: 99221 ==